=== PATIENT | female | born 1940 | race Caucasian/White ===

== ENCOUNTER 2021-06-09 17:12 | Inpatient (IN) ==
[2021-06-09 17:37] LABS: Hematocrit (blood only) 39.3 % (37-47); Hemoglobin 12.8 g/dL (12.0-16.0); Mean Corpuscular Hemoglobin 29.5 pg (25-34); Mean Corpuscular Hgb Conc 32.6 g/dL (32-36); Mean Corpuscular Volume 90.6 fL (80-100); Mean Platelet Volume 8.9 fL (7.4-10.4); Platelet Count 219 K/uL (130-400); RDW Coefficient of Variation 14.3 % (11.5-14.5); RDW Standard Deviation 47.2 fL (36.4-46.3); Red Blood Count 4.34 M/uL (4.2-5.4); White Blood Count 20.02 K/uL (4.8-10.8)
[2021-06-09 17:53] LABS: INR 1.1 (0.9-1.1); Partial Thromboplastin Time 27.3 Seconds (21.0-31.0); Prothrombin Time 10.9 Seconds (9.0-12.0)
[2021-06-09 17:56] LABS: Alanine Aminotransferase 26 (12-78); Albumin Level 3.6 gm/dl (3.4-5.0); Aspartate Aminotransferase 13 U/L (15-37); BUN Creatinine Ratio 10.3 (10-20); Blood Urea Nitrogen 7 mg/dl (7-18); Calcium 9.5 mg/dl (8.5-10.1); Carbon Dioxide 29 mmol/L (21-32); Chloride 102 mmol/L (98-107); Est GFR (African American) 91.7 ml/min; Est GFR (Non-African American) 79.1 ml/min; Glucose 102 mg/dl (70-99); Magnesium 2.1 mg/dl (1.8-2.4); Potassium 3.8 mmol/L (3.5-5.1); Sodium 135 mmol/L (136-145)
--- NOTE | 2021-06-09 17:56 | CT Scan Report ---
CT SCAN OF THE BRAIN WITHOUT IV CONTRAST CLINICAL HISTORY: Strokelike symptoms. COMPARISON STUDY: No priors. TECHNIQUE: Unenhanced axial CT scan of the brain is performed from the vertex to the skull base. A do se lowering technique was utilized adhering to the principles of ALARA. CT DOSE: 537.48 mGy.cm FINDINGS: Brain parenchyma: There are age-related involutional changes noting moderate subcortical and periven tricular microangiopathic change. There is no hemorrhage, mass effect, or evidence of acute territori al ischemia by CT criteria. A chronic lacunar infarct is noted in the left basal ganglia. Potter-white matter differentiation is preserved. No extra-axial fluid collection is seen. Ventricles, sulci, cisterns: Prominent secondary to involutional change. Intracranial vasculature: There is atherosclerotic calcification of the cavernous carotid arteries. Calvarium: Unremarkable. Sinuses and mastoids: The visualized paranasal sinuses are clear. The mastoid air cells are well pneu matized. Orbits: The bony orbits are grossly intact. There are bilateral ocular lens implants. IMPRESSION: There is no hemorrhage, mass effect, or evidence of acute territorial ischemia by CT enriqueta coburn. ACT 112: Negative or not required by law. Electronically signed by: Ray Dahl M.D. 06/09/2021 5:55 PM
[2021-06-09 17:59] LABS: Albumin Globulin Ratio 0.9 (0.9-2); Alkaline Phosphatase 100 U/L (45-117); Bilirubin,Total 0.6 mg/dl (0.2-1); Total Protein 7.6 gm/dl (6.4-8.2)
--- NOTE | 2021-06-09 21:05 | XRay Report ---
SINGLE VIEW CHEST CLINICAL HISTORY: Strokelike symptoms FINDINGS: An AP, portable, upright chest radiograph is obtained. No prior studies are available for c omparison at the time of dictation. The heart is top normal for projection noting atherosclerotic ca lcification of the thoracic aorta. The pulmonary vasculature is noncongested. Nonspecific interstitia l thickening is likely chronic. There is bibasilar atelectasis. The lungs and pleural spaces are othe rwise clear. No pneumothorax is seen. The skeletal structures are osteopenic. The bony thorax is mary sly intact. IMPRESSION: No active disease in the chest. ACT 112: Negative or not required by law. Electronically signed by: Ray Dahl M.D. 06/09/2021 9:03 PM
[2021-06-09] MEDS ORDERED: SODIUM CHLORIDE 0.9% 1000ML 1,000 ML IV ONE (21:35)
[2021-06-09] MEDS ORDERED: cefTRIAXone SODIUM 2,000 MG/70 ML BAG IV STA (21:36)
--- NOTE | 2021-06-09 21:47 | Emergency Department Note ---
Impression & Plan Altered mental status, Leukocytosis ED Provider Note NAME: MUSA HESS AGE: 81 SEX: F : 1940 ARRIVES VIA: Ambulance INFORMANT: Patient, Daughter ED PROVIDER(S): Cruz Levy DO CHIEF COMPLAINT: Confusion HPI: Patient is an 81-year-old female who presents ER for confusion. She is from out of town. She does take Eliquis for A. fib. Daughter notes she has been staying with her for the past 3 weeks. She is significantly more confused today. She denies any headache or change in vision. No chest pain or shortness of breath. No nausea, vomiting, or diarrhea. She does not think that she has any urinary symptoms but was not sure. She has no upper respiratory symptoms. No other exacerbating or remitting factors. Daughter notes that she was having trouble finding her words and she can no longer ambulate without a walker. ROS: See above HPI for pertinent positives & negatives. A total of 10 systems reviewed and were otherwise negative. PAST MEDICAL HISTORY:See Below PAST SURGICAL HISTORY:See Below FAMILY HISTORY:See Below SOCIAL HISTORY:See Below HOME MEDICATIONS:See Below ALLERGIES:See Below VITALS:See Below PHYSICAL EXAMINATION: GENERAL: Sitting up in bed, alert, well appearing, well nourished, no distress, non-toxic EYE EXAM: normal conjunctiva. PERRL and EOM's intact. OROPHARYNX: no exudate, no erythema, lips, buccal mucosa, and tongue normal and mucous membranes are moist NECK: supple, no nuchal rigidity, no adenopathy, non-tender LUNGS: Clear to auscultation. Normal chest wall mechanics HEART: no murmurs, S1 normal and S2 normal ABDOMEN: abdomen soft, non-tender, normo-active bowel sounds, no masses, no rebound or guarding. UPPER EXTREMITIES: upper extremities are grossly normal. LOWER EXTREMITIES: No pitting edema. NEURO EXAM: Oriented to person and daughter but not place or year, cranial nerves II-XII intact, normal speech, no weakness of arms, no weakness of legs. No drift. Finger to nose intact. Gross sensation intact. MEDICAL DECISION MAKING: Patient is an 81-year-old female who presents ER for confusion brought in by daughter. She has been having increased trouble walking. IV was established blood was obtained. Labs show leukocytosis 20,000. No significant anemia. INR unremarkable. BMP with LFTs bilirubin was unremarkable. Influenza RSV and Covid was negative. Chest x-ray and CT head were negative. Patient was given IV fluids and IV antibiotics. Urine was pending. Patient was updated bedside with daughter. Patient was given IV antibiotics admitted for further work-up pending UA as I favor this likely source. She has no headache or neck pain. No thing to suggest meningitis and she does take a NOAC and consequently cannot tap at this time. Triage Nursing notes reviewed. Limited review of prior medical records performed Vital Signs: reviewed and remarkable for HTN and ami Differential diagnosis: Infection, dehydration, metabolic abnormality, hypo/hyperglycemia, electrolyte disturbance, anemia, hypoxia, cardiac sources, intracerebral event, toxicologic, neurologic, as well as other pathologies. ER treatment provided: See below Diagnostics interpreted by me: ECG: Sinus bradycardia rate of 44 Normal axis No PVCs QTC 465 Cardiac Monitoring: An order was placed for continuous cardiac monitoring. The monitor shows a rate of 50 with sinus rhythm. Laboratory studies: As stated above and show below. Imaging studies: CT head was negative Portable AP upright 1 view chest was unremarkable Consultation(s): Discussed with hospitalist for further evaluation Procedures: none Critical Care: None Past Med/Surg History Social History Smoking Status: Never smoker Preferred Language: Jamaican Feels Safe at Home: Yes Allergies Allergies Allergy/AdvReac Type Severity Reaction Status Date / Time No Known Allergies Allergy Unverified 06/09/21 23:16 Home Meds Home Medications Medication Instructions Recorded Confirmed apixaban 5 mg tablet (Eliquis) 5 mg PO BID 06/09/21 06/09/21 atorvastatin 40 mg tablet 40 mg PO QAM 06/09/21 06/09/21 calcium carbonate 500 mg-vitamin 1 tab PO DAILY 06/09/21 06/09/21 D3 10 mcg (400 unit) tablet (Calcium 500 With D) metoprolol succinate 50 mg 50 mg PO BID 06/09/21 06/09/21 tablet,extended release 24 hr multivitamin 1 tab PO DAILY 06/09/21 06/09/21 omeprazole 20 mg capsule,delayed 20 mg PO BID 06/09/21 06/09/21 release sertraline 25 mg tablet 25 mg PO DAILY 06/09/21 06/09/21 Results & Data (ED) Vital Signs Vital Signs - 24 hr 06/09/21 17:22 06/09/21 21:55 06/09/21 22:00 Temperature 36.2 C L Temperature Source Temporal Artery Scan Pulse Rate 46 L 47 L 42 L Pulse Rate from SpO2 Sensor 44 L 43 L Pulse Rhythm Regular Pulse Strength Normal Respiratory Rate 20 23 15 Respiratory Effort / Characteristics Non-Labored Spontaneous Respiratory Depth Normal Respiratory Pattern Regular Blood Pressure 186/93 H Blood Pressure Mean 124 Blood Pressure Position Sitting Pulse Oximetry 98 97 97 Oxygen Delivery Method Room Air Sepsis Recent Fever Within 48 Hours No Sepsis New/Unexplained Change in Mental Status No Sepsis Action Taken by Nursing No Action Required 06/09/21 22:30 06/09/21 23:00 Temperature Temperature Source Pulse Rate 45 L 47 L Pulse Rate from SpO2 Sensor 44 L Pulse Rhythm Pulse Strength Respiratory Rate 22 18 Respiratory Effort / Characteristics Respiratory Depth Respiratory Pattern Blood Pressure 186/114 H 194/100 H Blood Pressure Mean 138 131 Blood Pressure Position Pulse Oximetry 95 98 Oxygen Delivery Method Room Air Sepsis Recent Fever Within 48 Hours Sepsis New/Unexplained Change in Mental Status Sepsis Action Taken by Nursing Laboratory Data Result diagrams: 06/09/21 17:28 06/09/21 17:28 Lab Results 06/09/21 06/09/21 06/09/21 Range/Units 17:28 17:28 17:28 WBC 20.02 H (4.8-10.8) K/uL RBC 4.34 (4.2-5.4) M/uL Hgb 12.8 (12.0-16.0) g/dL Hct 39.3 (37-47) % MCV 90.6 (80-100) fL MCH 29.5 (25-34) pg MCHC 32.6 (32-36) g/dL RDW Std Deviation 47.2 H (36.4-46.3) fL RDW Coeff of Sonido 14.3 (11.5-14.5) % Plt Count 219 (130-400) K/uL MPV 8.9 (7.4-10.4) fL PT 10.9 (9.0-12.0) Seconds INR 1.1 (0.9-1.1) APTT 27.3 (21.0-31.0) Seconds PTT Ratio 1.0 Sodium 135 L (136-145) mmol/L Potassium 3.8 (3.5-5.1) mmol/L Chloride 102 (98-107) mmol/L Carbon Dioxide 29 (21-32) mmol/L Anion Gap 4.0 (3-11) BUN 7 (7-18) mg/dl Creatinine 0.72 (0.6-1.2) mg/dl Est Cr Clr Drug Dosing Not Reportable Est GFR ( Amer) 91.7 ml/min Est GFR (Non-Af Amer) 79.1 ml/min BUN/Creatinine Ratio 10.3 (10-20) Glucose 102 H (70-99) mg/dl Lactate (0.4-2.0) mmol/L Calcium 9.5 (8.5-10.1) mg/dl Magnesium 2.1 (1.8-2.4) mg/dl Total Bilirubin 0.6 (0.2-1) mg/dl AST 13 L (15-37) U/L ALT 26 (12-78) Alkaline Phosphatase 100 (45-117) U/L Total Protein 7.6 (6.4-8.2) gm/dl Albumin 3.6 (3.4-5.0) gm/dl Globulin 4.0 (2.5-4.0) gm/dl Albumin/Globulin Ratio 0.9 (0.9-2) SARS-CoV-2 (PCR) (Negative) Influenza Type A (PCR) (Neg) Influenza Type B (PCR) (Neg) RSV (RT-PCR) (Neg) 06/09/21 06/09/21 Range/Units 21:43 21:44 WBC (4.8-10.8) K/uL RBC (4.2-5.4) M/uL Hgb (12.0-16.0) g/dL Hct (37-47) % MCV (80-100) fL MCH (25-34) pg MCHC (32-36) g/dL RDW Std Deviation (36.4-46.3) fL RDW Coeff of Sonido (11.5-14.5) % Plt Count (130-400) K/uL MPV (7.4-10.4) fL PT (9.0-12.0) Seconds INR (0.9-1.1) APTT (21.0-31.0) Seconds PTT Ratio Sodium (136-145) mmol/L Potassium (3.5-5.1) mmol/L Chloride (98-107) mmol/L Carbon Dioxide (21-32) mmol/L Anion Gap (3-11) BUN (7-18) mg/dl Creatinine (0.6-1.2) mg/dl Est Cr Clr Drug Dosing Est GFR ( Amer) ml/min Est GFR (Non-Af Amer) ml/min BUN/Creatinine Ratio (10-20) Glucose (70-99) mg/dl Lactate 1.0 (0.4-2.0) mmol/L Calcium (8.5-10.1) mg/dl Magnesium (1.8-2.4) mg/dl Total Bilirubin (0.2-1) mg/dl AST (15-37) U/L ALT (12-78) Alkaline Phosphatase (45-117) U/L Total Protein (6.4-8.2) gm/dl Albumin (3.4-5.0) gm/dl Globulin (2.5-4.0) gm/dl Albumin/Globulin Ratio (0.9-2) SARS-CoV-2 (PCR) NEGATIVE (Negative) Influenza Type A (PCR) Negative (Neg) Influenza Type B (PCR) Negative (Neg) RSV (RT-PCR) Negative (Neg) Administered Medications Discontinued Medications Sodium Chloride (Nss 1000ml) 1,000 mls @ 999 mls/hr IV .Q1H1M ONE Stop: 06/09/21 22:35 Last Infusion: 06/09/21 23:32 Dose: 0 mls/hr Documented by: [id number] Admin: 06/09/21 22:41 Dose: 999 mls/hr Documented by: [id number] Ceftriaxone Sodium (Rocephin) 2,000 mg in 70 mls @ 140 mls/hr IV NOW STA Stop: 06/09/21 22:05 Last Infusion: 06/09/21 23:32 Dose: 0 mls/hr Documented by: [id number] Admin: 06/09/21 22:41 Dose: 140 mls/hr Documented by: [id number] Imaging Data Radiologist's Impression: Head CT 06/09/21 17:29 CT SCAN OF THE BRAIN WITHOUT IV CONTRAST CLINICAL HISTORY: Strokelike symptoms. COMPARISON STUDY: No priors. TECHNIQUE: Unenhanced axial CT scan of the brain is performed from the vertex to the skull base. A dose lowering technique was utilized adhering to the principles of ALARA. CT DOSE: 537.48 mGy.cm FINDINGS: Brain parenchyma: There are age-related involutional changes noting moderate subcortical and periventricular microangiopathic change. There is no hemorrhage, mass effect, or evidence of acute territorial ischemia by CT criteria. A chronic lacunar infarct is noted in the left basal ganglia. Potter-white matter differentiation is preserved. No extra-axial fluid collection is seen. Ventricles, sulci, cisterns: Prominent secondary to involutional change. Intracranial vasculature: There is atherosclerotic calcification of the cavernous carotid arteries. Calvarium: Unremarkable. Sinuses and mastoids: The visualized paranasal sinuses are clear. The mastoid air cells are well pneumatized. Orbits: The bony orbits are grossly intact. There are bilateral ocular lens implants. IMPRESSION: There is no hemorrhage, mass effect, or evidence of acute territorial ischemia by CT criteria. ACT 112: Negative or not required by law. Electronically signed by: Ray Dahl M.D. 06/09/2021 5:55 PM Chest X-Ray 06/09/21 20:16 SINGLE VIEW CHEST CLINICAL HISTORY: Strokelike symptoms FINDINGS: An AP, portable, upright chest radiograph is obtained. No prior studies are available for comparison at the time of dictation. The heart is top normal for projection noting atherosclerotic calcification of the thoracic aorta. The pulmonary vasculature is noncongested. Nonspecific interstitial thickening is likely chronic. There is bibasilar atelectasis. The lungs and pleural spaces are otherwise clear. No pneumothorax is seen. The skeletal structures are osteopenic. The bony thorax is grossly intact. IMPRESSION: No active disease in the chest. ACT 112: Negative or not required by law. Electronically signed by: Ray Dahl M.D. 06/09/2021 9:03 PM Discharge Plan Visit Data Chief Complaint: Confusion Stated Complaint: CONFUSION ED Provider: Cruz Levy Discharge Problem: Altered mental status, Leukocytosis
[2021-06-09 22:35] LABS: Influenza A virus by PCR Negative (Neg); Influenza B virus by PCR Negative (Neg); RSV by PCR Negative (Neg)
--- NOTE | 2021-06-09 23:16 | History & Physical Report ---
Date of Service June 09, 2021 Assessment & Plan (1) Altered mental status: Plan: Mrs. Terrazas is an 81 yo woman who is being admitted for an alteration in her baseline mental status. - etiology uncertain: - Head CT negative for acute process, structural causes unlikely - As for metabolic causes: - WBC elevated to 20. Differential ordered on admission. UA pending. CXR showing no evidence of PNA. Patient is experiencing diarrhea, but no constitutional or upper GI symptoms that would favor a viral gastroenteritis. - TSH ordered - ammonia ordered - no electrolyte derangements - acute UTI presumed to be most likely source - if metabolic work up is totally negative, consider brain MRI for evaluation of ischemic stroke - PT/OT ordered (2) Leukocytosis: Plan: - WBC elevated to 20 on admission - differential ordered - blood cultures pending - UA pending - patient was empirically treated with ceftriaxone in ED. I will await results of UA before continuing antibiotics - COVID/Flu/RSV neg - repeat CBC in am (3) Atrial fibrillation: Plan: - paroxysmal - anticoagulated on Eliquis - rate controlled on Metoprolol - held on admission due to bradycardia (4) Bradycardia: Plan: - HR was in 40s on admission - sinus bradycardia; no AV sarah blockade noted - patient is on Metoprolol succinate 50mg BID; hold on admission - checking TSH - may be due to sinus node dysfunction of the elderly - continue cardiac monitoring (5) HLD (hyperlipidemia): Plan: - continue home dose statin (6) GERD (gastroesophageal reflux disease): Plan: - continue protonix 20mg daily (7) Depression: Plan: - continue home dose sertraline DVT ppx on Eliquis Diet: heart healthy Dispo: Med/tele Code: DNR/DNI, I discussed with patient History of Present Illness Primary Care Provider: NO PCP Mrs. Terrazas is an 81 yo woman who was brought into the [facility] ED for a change in her baseline mental status. Mrs. Terrazas lives in [place], [place] but has been visiting her daughter in [place] for the past 3 weeks. Her daughter says she has mild underlying confusion (ie typically does not know the month or year)- however over the past 1-2 days her mental status has markedly changed. Mrs. Terrazas seemed more disoriented, has had trouble finding her words, and has needed to use a walker to ambulate. She and daughter deny any preceding falls; she denies any fever/chills, headache or vision changes, cough/congestion, nausea/vomiting. She has experienced several episodes of diarrhea - however she has been diagnosed with IBS in the past and intermittently experiences diarrhea. She denies any dysuria, but think she may be urinating more frequently than usual. Social Hx: No eoth or tobacco. In the ED, she was afebrile with a HR of 46 bpm, BP of 186/93, RR 20, 93% on RA. WBC elevated to 20 - no differential was ordered. Coags WNL. CMP normal. Lactate not elevated. COVID/Flu/RSV neg. Blood cultures were obtained. UA was ordered. CXR showed no acute processes. Head CT was negative. She was given 1 liter of NSS and 2g of IV ceftriaxone. Allergies Allergy/AdvReac Type Severity Reaction Status Date / Time No Known Allergies Allergy Unverified 06/09/21 23:16 Home Medications Medication Instructions Recorded Confirmed Type apixaban 5 mg tablet (Eliquis) 5 mg PO BID 06/09/21 06/09/21 History atorvastatin 40 mg tablet 40 mg PO QAM 06/09/21 06/09/21 History calcium carbonate 500 mg-vitamin 1 tab PO DAILY 06/09/21 06/09/21 History D3 10 mcg (400 unit) tablet (Calcium 500 With D) metoprolol succinate 50 mg 50 mg PO BID 06/09/21 06/09/21 History tablet,extended release 24 hr multivitamin 1 tab PO DAILY 06/09/21 06/09/21 History omeprazole 20 mg capsule,delayed 20 mg PO BID 06/09/21 06/09/21 History release sertraline 25 mg tablet 25 mg PO DAILY 06/09/21 06/09/21 History Past Med/Surg History Medical History (Updated 06/10/21 @ 17:35 by Tiffanie Orellana DO) Expressive aphasia Social History Smoking Status: Never smoker Preferred Language: Turkmen Communication Ability: Exp [employer] Consultant Required: No Beliefs That Will Affect Care: None Feels Safe at Home: Yes Review of Systems Review of Systems: All systems reviewed & are unremarkable except as noted in HPI & below Physical Exam Constitutional: WD/WN, vitals as above cooperative; no acute distress Eyes: PERRL, conjunctivae normal, anicteric sclerae ENMT: external ear and nose normal, oropharynx normal Neck: trachea midline Respiratory: normal respiratory effort, lungs clear to auscultation no cough Auscultation: no crackles and no wheezes Cardiovascular: Rate/Rhythm: regular rhythm and + bradycardic Heart Sounds: normal S1 and normal S2; no murmur Extremities: no pedal edema Gastrointestinal (Abdomen): normal bowel sounds, soft, nontender, no hepatosplenomegaly Musculoskeletal: Head/Neck/Chest: normocephalic and head atraumatic Skin: no rashes, warm and dry Neurologic: moves all extremities Psychiatric: Orientation: alert, oriented to person and oriented to place; + not oriented to time (does not know month or year, this is baseline) Results & Data Results & Data ([facility]) Vital Signs (Past 12 Hours) Vital Signs Temp Pulse Resp BP Pulse Ox 06/09/21 22:30 45 L 22 186/114 H 95 06/09/21 22:00 42 L 15 97 06/09/21 21:55 47 L 23 97 06/09/21 17:22 36.2 C L 46 L 20 186/93 H 98 Supervising Physician Co-Signing Physician Notes Patient seen and examined, chart reviewed, case discussed with Dr. Aguayo and I agree with the assessment and plan as above. Patient is an 81yo female presenting with her daughter with complaints of increased confusion, vertigo and ambulatory dysfunction. Patient is visiting her daughter from [place] x 3 weeks. She has been eating well. No new medications. Has had diarrhea on occasion. No focal deficits described. On exam she is afebrile, bradycardic at 40-50's, seen as low as 37bpm on ER monitor while patient resting. No edema or evidence of CHF Abdomen - soft, NT/ND, no masses Ext - warm, well perfused, no clubbing, cyanosis or edema Labs and images reviewed. WBC=20K Assessment/Plan - 81yo female presenting with vertigo, confusion, ambulatory dysfunction. Bradycardic in ER -Hold Metoprolol -Awaiting UA -Consider brain imaging -Cardiology consultation appreciated re: bradycardia -Remainder of plan as above Resident Activity Tracking Resident Involvement: Resident Care Provided Care Provided: Adult Hospital Medicine (1) Leukocytosis Leukocytosis type: unspecified Qualified Code(s): D72.829 - Elevated white blood cell count, unspecified (2) Altered mental status Altered mental status type: unspecified Qualified Code(s): R41.82 - Altered mental status, unspecified
[2021-06-10 01:40] LABS: ALC (manual) 11.53 K/uL (1.2-3.4); ANC (manual) 7.59 K/uL (1.4-6.5); Basophils # (manual) 0.18 K/uL (0-0.2); Basophils % (manual) 0.9 %; Eosinophils # (manual) 0.54 K/uL (0-0.5); Eosinophils % (manual) 2.7 %; Lymphocytes # (manual) 4.14 K/uL (1.2-3.4); Lymphocytes % (manual) 20.7 %; Monocytes # (manual) 0.18 K/uL (0.11-0.59); Monocytes % (manual) 0.9 %; Neutrophils # (manual) 7.59 K/uL (1.4-6.5); Neutrophils % (manual) 37.9 %; RBC Morphology Unremarkable; Reactive Lymphocytes # (manual) 7.39 K/uL; Reactive Lymphocytes % (manual) 36.9 %
[2021-06-10 03:55] LABS: Appearance Urine Clear (Clear); Bilirubin Urine Negative (Negative); Blood Urine Negative (Negative); Color Urine Yellow; Glucose Urine UA Negative (Negative); Ketones Urine Negative (Negative); Leukocyte Esterase Urine Negative (Negative); Nitrite Urine Negative (Negative); Protein Urine Negative (Negative); Specific Gravity Urine 1.004 (1.000-1.030); Urobilinogen Urine Negative (Negative); pH Urine 6.5 (4.5-7.5)
[2021-06-10] MEDS ORDERED: ONDANSETRON INJ 2 MG/ML 2 ML VIAL IV PRN (08:41)
[2021-06-10] MEDS ORDERED: POLYETHYLENE (MIRALAX) 17 GM PACK PO PRN (08:41)
[2021-06-10] MEDS ORDERED: MECLIZINE 12.5 MG TAB PO PRN (08:41)
[2021-06-10] MEDS ORDERED: ACETAMINOPHEN 325 MG TAB PO PRN (08:41)
[2021-06-10] MEDS ORDERED: PANTOprazole 40 MG TAB PO SCH (09:00)
[2021-06-10] MEDS: APIXABAN 2.5 MG TAB PO SCH ×2 (10:03→22:16)
[2021-06-10] MEDS: ATORVASTATIN 40 MG TAB PO SCH (10:05)
[2021-06-10] MEDS: PANTOprazole 40 MG TAB PO SCH (10:05)
[2021-06-10] MEDS: SERTRALINE HCL 50 MG TABLET PO SCH (10:06)
[2021-06-10 10:39] LABS: Hematocrit (blood only) 41.2 % (37-47); Hemoglobin 13.3 g/dL (12.0-16.0); Mean Corpuscular Hemoglobin 29.4 pg (25-34); Mean Corpuscular Hgb Conc 32.3 g/dL (32-36); Mean Corpuscular Volume 91.2 fL (80-100); Platelet Count 227 K/uL (130-400); RDW Coefficient of Variation 14.5 % (11.5-14.5); RDW Standard Deviation 48.3 fL (36.4-46.3); Red Blood Count 4.52 M/uL (4.2-5.4); White Blood Count 17.95 K/uL (4.8-10.8)
[2021-06-10 10:56] LABS: BUN Creatinine Ratio 8.5 (10-20); Blood Urea Nitrogen 7 mg/dl (7-18); Calcium 8.9 mg/dl (8.5-10.1); Carbon Dioxide 26 mmol/L (21-32); Chloride 106 mmol/L (98-107); Est GFR (African American) 85.9 ml/min; Est GFR (Non-African American) 74.1 ml/min; Glucose 122 mg/dl (70-99); Magnesium 1.9 mg/dl (1.8-2.4); Potassium 3.7 mmol/L (3.5-5.1); Sodium 139 mmol/L (136-145)
[2021-06-10 10:59] LABS: Basophils # (auto) 0.04 K/uL (0-0.2); Basophils % (auto) 0.2 %; Eosinophils # (auto) 0.28 K/uL (0-0.5); Eosinophils % (auto) 1.6 %; Immature Granulocytes # (auto) 0.03 K/uL (0.00-0.02); Immature Granulocytes % (auto) 0.2 %; Lymphocytes # (auto) 11.98 K/uL (1.2-3.4); Lymphocytes % (auto) 66.7 %; Monocytes # (auto) 0.62 K/uL (0.11-0.59); Monocytes % (auto) 3.5 %; Neutrophils % (auto) 27.8 %
--- NOTE | 2021-06-10 11:42 | Cardiology Consultation ---
Date of Consultation June 10, 2021 Assessment & Plan (1) Bradycardia: -likely secondary to her metoprolol succinate. -agree with holding beta-sienna. -continue to monitor on telemetry. (2) PAF (paroxysmal atrial fibrillation): -maintained on rate control and long-term anticoagulation. -continue Eliquis. (3) Hypertension: -may need to add another agent such as amlodipine. (4) HLD (hyperlipidemia): -continue atorvastatin. History of Present Illness Attending Physician: Macho Armstrong DO History of Present Illness Mrs. Terrazas is an 81-year-old female admitted yesterday with mental status changes and bradycardia. This consultation was ordered to assist in her cardiac management. Of note, the patient follows with a control panel tester in [place], [place]. She is currently in this area visiting her daughter. The patient was in her usual state of health until 1-2 days prior to presentation. Although she has underlying confusion, the daughter noted her to become much more confused, disoriented, and had to use a walker for ambulation. She was brought to the emergency room for further evaluation. On arrival here, the patient was noted to be in a sinus bradycardia at 40-50 beats per minute. The remainder of her workup was unremarkable. The patient does carry history of paroxysmal atrial fibrillation treated with metoprolol succinate and Eliquis. Her metoprolol succinate was placed on hold at the time of admission. Currently, patient is resting comfortably in bed without complaints. Past medical and surgical history 1. Hypertension 2. Hypercholesterolemia 3. Paroxysmal atrial fibrillation 4. GERD 5. Irritable bowel syndrome 6. Depression 7. Dementia Social history , lives alone Hails from [place], [place] No tobacco alcohol Family history Noncontributory Review of systems A 10 review systems was negative except that described above. Allergies Allergy/AdvReac Type Severity Reaction Status Date / Time No Known Allergies Allergy Unverified 06/09/21 23:16 Home Medications Medication Instructions Recorded Confirmed Type apixaban 5 mg tablet (Eliquis) 5 mg PO BID 06/09/21 06/09/21 History atorvastatin 40 mg tablet 40 mg PO QAM 06/09/21 06/09/21 History calcium carbonate 500 mg-vitamin 1 tab PO DAILY 06/09/21 06/09/21 History D3 10 mcg (400 unit) tablet (Calcium 500 With D) metoprolol succinate 50 mg 50 mg PO BID 06/09/21 06/09/21 History tablet,extended release 24 hr multivitamin 1 tab PO DAILY 06/09/21 06/09/21 History omeprazole 20 mg capsule,delayed 20 mg PO BID 06/09/21 06/09/21 History release sertraline 25 mg tablet 25 mg PO DAILY 06/09/21 06/09/21 History Patient History Social History Smoking Status: Never smoker Preferred Language: Hebrew Feels Safe at Home: Yes Physical Exam Physical Exam: In general is well-developed well-nourished white female no acute distress. HEENT exam is negative. Neck is supple with full carotid upstrokes. There are no carotid bruits. Jugular venous pressure is flat at 90. There is no thyromegaly. Cardiovascular exam reveals a regular with normal S1-S2. Heart sounds are distant. No obvious murmurs. Lungs are clear without rales, rhonchi, or wheezes. Abdomen is soft and nontender without bruits. Extremities reveal intact radial artery pulses bilaterally. There is trace pretibial edema. Results & Data ([facility]) Vital Signs (Past 12 Hours) Vital Signs Pulse Pulse Resp BP BP Pulse Ox 06/10/21 04:00 43 L 18 181/86 H 96 06/10/21 02:30 38 L 16 151/68 H 91 06/10/21 01:30 42 L 17 169/67 H 90 06/10/21 00:30 43 L 16 153/79 H 91 Laboratory Results CBC notes hemoglobin of 12.8, crit 39.3, white count 20.0 and a platelet count of 200197. Electrolytes note a sodium of 135, potassium 3.8, chloride 102, bicarb 29, BUN 7, creatinine 0.72, and glucose of 102. Magnesium level is 2.1. Diagnostic Findings EKG notes sinus bradycardia 44 beats per minute. No other abnormalities. Chest x-ray shows no acute disease. PG Care Time/CCT Total # of Minutes Spent Total Time Spent with Patient: Total time spent is greater than 50% in coordination of care (as documented) at patient's floor/unit and/or counseling patient: Coding Level of Care Code 12771 Office/Outpt Visit, New Diagnoses Bradycardia R00.1 PAF (paroxysmal atrial fibrillation) I48.0 Hypertension I10 HLD (hyperlipidemia) E78.5
--- NOTE | 2021-06-10 12:21 | Electrocardiogram Report ---
Test Reason : Blood Pressure : / mmHG Vent. Rate : 044 BPM Atrial Rate : 044 BPM P-R Int : 150 ms QRS Dur : 084 ms QT Int : 544 ms P-R-T Axes : 064 057 033 degrees QTc Int : 465 ms Marked sinus bradycardia Abnormal ECG No previous ECGs available Confirmed by Juventino Hawley ([id number]) on 06/10/2021 12:21:03 PM Referred By: REFERRED SELF Confirmed By:Juventino Hawley
[2021-06-10] MEDS ORDERED: GADOBUTROL 65ML VIAL IV ONE (15:28)
--- NOTE | 2021-06-10 15:59 | Magnetic Resonance Report ---
MR angio neck wo/w con CLINICAL HISTORY: expressive aphasia COMPARISON STUDY: No previous studies for comparison. TECHNIQUE: Utilizing a 1.5 Carole magnet and dedicated coil, unenhanced and contrast-enhanced MRA of t he neck was performed. Intravenous injection of 6 cc of Gadavist was uneventful. FINDINGS: The bilateral common carotid, cervical internal carotid and vertebral arteries are patent. There are no stenoses within the bilateral common carotid and cervical internal carotid arteries. Mil d stenosis at the origins of the bilateral vertebral arteries are noted. No dissection is identified within the neck by MRI. No aneurysm within the neck is noted. IMPRESSION: 1. No stenosis within the bilateral common carotid or cervical internal carotid arteries. 2. Mild stenoses at the origins of the bilateral vertebral arteries. ACT 112: Negative or not required by law. Electronically signed by: Moiz Haynes M.D. 06/10/2021 3:58 PM
--- NOTE | 2021-06-10 16:07 | Magnetic Resonance Report ---
MRI OF THE BRAIN WITHOUT AND WITH IV CONTRAST CLINICAL HISTORY: expressive aphasia COMPARISON STUDY: Head CT June 09, 2021. TECHNIQUE: Utilizing a 1.5 Carole magnet and dedicated coil, multiplanar, multiecho imaging of the br ain was performed pre and postcontrast administration. IV administration of 6 mL of Gadavist contras t was uneventful. Thin cut T1 post contrast imaging was performed. FINDINGS: There are no foci of restricted diffusion to suggest acute infarct. No acute intracranial h emorrhage, midline shift or mass effect is present. Moderate atrophy is noted. Ventricular system is unremarkable. Basal cisterns are patent. There are no extra axial collections. Flow-voids for the mary or intracranial vessels are present. White matter T2 hyperintense foci suggest small vessel disease. A 3 mm enhancing focus within the anum is noted. There is no associated T2 hyperintensity. No additio nal intracranial lesions are noted. Calvarial signal is normal. Orbits are unremarkable. There is no evidence for sinusitis. Is no mastoid fluid. Note is made of a 1.1 cm T2 hyperintense peripherally en hancing lesion lateral to the right mandibular ramus shown on axial T2-weighted sequence image 3 of 2 2. This likely arises from the superficial lobe of the right parotid gland. IMPRESSION: 1. No acute intracranial findings. 2. Moderate atrophy. 3. White matter T2 hyperintense foci suggestive of small vessel disease. 4. 1.1 cm T2 hyperintense peripherally enhancing lesion lateral to the right mandibular ramus. This f avors an indeterminate right parotid gland lesion. Nonemergent right parotid ultrasound is recommende d for further evaluation. 5. 3 mm enhancing focus within the anum which favors a capillary telangiectasia. ACT 112: Negative or not required by law. Electronically signed by: Moiz Haynes M.D. 06/10/2021 4:06 PM
--- NOTE | 2021-06-10 17:27 | Hospitalist Progress Note ---
Date of Service June 10, 2021 Assessment & Plan (1) Expressive aphasia: Plan: Cindy Terrazas is an 81 yo female w/ PMHx of paroxysmal atrial fibrillation, HLD, GERD, and depression who is being admitted for an alteration in her baseline mental status and expressive aphasia. Expressive Aphasia and Confusion/Altered Mental Status - Head CT 06/09/21 negative for acute process - MRI/MRA 06/10/21 w/o acute findings of ischemia. Moderate atrophy. Small vessel disease. ? right parotid gland lesion (recommend nonemergent right parotid US for further evaluation). Mild stenoses at the origins of the b/l vertebral arteries. - UA unremarkable. Patient did receive dose of ceftriaxone empirically in ED due to leukocytosis but abx therapy discontinued. - TSH wnl -- 2.63 - Ammonia wnl -- 15.9 - No electrolyte derangements - Blood smear, pending - PT/OT ordered, pending Leukocytosis - WBC elevated to 20 on admission; repeat with slight improvement this AM at 17.95 - Blood cultures pending - COVID/Flu/RSV neg - Will continue to monitor with CBC qAM Atrial fibrillation, paroxysmal - Anticoagulated on Eliquis - Rate controlled on Metoprolol -- held on admission due to bradycardia Bradycardia: - HR consistently in 40s-50s since admission - Cardiology consulted: agree that this is likely secondary to her metoprolol s uccinate and agree w/ continuing to hold the beta-sienna - Will continue to monitor on telemetry Chronic Medical Problems Hypertension: home metoprolol held on admission due to bradycardia. Per cardiology, may need to add another agent such as amlodipine. HLD (hyperlipidemia): continue home dose statin GERD (gastroesophageal reflux disease): continue protonix 20mg daily Depression: continue home dose sertraline DVT ppx on Eliquis Diet: heart healthy Dispo: Med/tele Code: DNR/DNI (2) Altered mental status: (3) PAF (paroxysmal atrial fibrillation): (4) Hypertension: (5) Bradycardia: (6) Depression: (7) GERD (gastroesophageal reflux disease): (8) HLD (hyperlipidemia): (9) Leukocytosis: Admission and Anticipated Discharge Date Admission Date: June 09, 2021 Supervising Physician Co-Signing Physician Notes Patient seen and examined with PGY 2 Dr. Orellana. Agree with history, exam findings, assessment and plan of care as outlined. In brief, Ms. Terrazas is an 81-year-old female with history of paroxysmal atrial fibrillation, hyperlipidemia, GERD and depression admitted for expressive aphasia. Reports that she feels better today compared to yesterday but still has concerns with intermittent word finding difficulty. She is getting very frustrated with this. Vital signs and nursing notes reviewed. Well-appearing. Extraocular motion is intact. Heart with a regular rhythm. She is bradycardic down to the 50s. Lungs are clear to auscultation in all lung dumont. No wheezing, rhonchi or rales. She does have intermittent expressive aphasia throughout the interview. Cranial nerves II through XII are grossly intact. She has 5 out of 5 geek squad manager strength, bilateral upper extremities and lower extremities. Negative pronator drift. Labs and imaging reviewed. 1. Expressive aphasia and confusion. Suspect this may be due to a small infarct. CT head was negative for acute process. MRI/MRA today without acute findings of ischemia. There is moderate atrophy and small vessel disease. Mild stenosis at the origin of the bilateral vertebral arteries. Infectious work-up has been negative. TSH and ammonia are within normal limits. 2. Leukocytosis. White blood cell count was elevated to 20 on admission. Repeat this morning was 17.9. She has no infectious symptoms. Blood cultures are pending. Flu and Covid and RSV swabs were negative. Blood smear is also pending. 3. Paroxysmal atrial fibrillation. We have stopped her metoprolol due to bradycardia. Please see details below. Continue anticoagulation with Eliquis. 4. Bradycardia down to the 30s overnight. We have stopped her metoprolol. 5. Hypertension. Holding home metoprolol due to bradycardia. Because her blood pressures have been slightly elevated with no acute infarct seen on MRI and the fact that her aphasia symptoms have been ongoing for the last several days, she is out of the window for permissive hypertension. We have started amlodipine 5 mg. 6. Right parotid gland lesion. This is an incidental finding. Can have a nonemergent right parotid ultrasound for further evaluation as an outpatient. Disposition: Pending clinical improvement, PT and OT evaluations. Subjective Patient seen and evaluated at bedside. States that she is overall feeling better than yesterday. Still with concerns for word-finding difficulty. Patient is understandably frustrated with the word-finding difficulty as she notes that she knows what she wants to say but the words are "on the tip of the tongue" and she can't get them out. She denies difficulty w/ ambulation, decreased appetite, abdominal pain, nausea, vomiting, diarrhea, constipation, CP, SOB, cough, or BALL. She does note some dizziness, described as room spinning, a few days ago but states that this has also resolved. Also discussed w/ daughter early this evening. Daughter notes that patient has h ad decreased appetite over the last few days. She has had an ~5 lb weight loss in the past few weeks but no other significant weight loss. Patient is planning to fly w/ daughter and family to return home to [place] this upcoming Saturday (in 6 days). Daughter notes that patient lives in an assisted living community. Patient has had significant difficulty over the past year after the loss of her as well as "closing down" and isolation in the assisted living community. Review of Systems Review of Systems: See HPI Physical Exam Physical Exam: GENERAL: No acute distress. Well developed and well nourished. Vital signs reviewed as above. EYES: PERRLA. EOMI. Anicteric sclerae. HENT: Moist mucous membranes. No pharyngeal erythema or exudates. No cervical lymphadenopathy. RESPIRATORY: Clear to auscultation bilaterally. No wheezing, rales, or rhonchi. CARDIOVASCULAR: Regular rate and rhythm. ABDOMEN: Soft, non-tender and non-distended. Normal bowel sounds. EXTREMITIES: No edema. Non-tender. SKIN: Warm, dry. NEUROLOGIC: Intermittent expressive aphasia noted thorughout interview and exam. CN II-XII grossly intact. Normal sensation. 5/5 geek squad manager strength, BUE flexion/extension, and BLE flexion/extension. PSYCHIATRIC: Cooperative. Appropriate mood and affect. Results & Data Results & Data ([facility]) Vital Signs (Past 12 Hours) Vital Signs Temp Pulse Resp BP Pulse Ox 06/10/21 12:00 37 C 50 L 18 162/104 H 96 06/10/21 08:00 36.9 C 44 L 18 190/71 H 96 Laboratory Results 06/10/21 06/10/21 06/10/21 Range/Units 10:29 10:26 10:26 WBC 17.95 H (4.8-10.8) K/uL RBC 4.52 (4.2-5.4) M/uL Hgb 13.3 (12.0-16.0) g/dL Hct 41.2 (37-47) % MCV 91.2 (80-100) fL MCH 29.4 (25-34) pg MCHC 32.3 (32-36) g/dL RDW Std Deviation 48.3 H (36.4-46.3) fL RDW Coeff of Sonido 14.5 (11.5-14.5) % Plt Count 227 (130-400) K/uL MPV 9.0 (7.4-10.4) fL Immature Gran % (Auto) 0.2 % Neut % (Auto) 27.8 % Lymph % (Auto) 66.7 % [place] % (Auto) 3.5 % Eos % (Auto) 1.6 % Baso % (Auto) 0.2 % Neut # (Auto) 5.00 (1.4-6.5) K/uL Lymph # (Auto) 11.98 H (1.2-3.4) K/uL [place] # (Auto) 0.62 H (0.11-0.59) K/uL Eos # (Auto) 0.28 (0-0.5) K/uL Baso # (Auto) 0.04 (0-0.2) K/uL Immature Gran # (Auto) 0.03 H (0.00-0.02) K/uL Neutrophils % (Manual) % Lymphocytes % (Manual) % Reactive Lymphs % (Man) % Monocytes % (Manual) % Eosinophils % (Manual) % Basophils % (Manual) % Neutrophils # (Manual) (1.4-6.5) K/uL Total Absolute Neuts (1.4-6.5) K/uL Lymphocytes # (Manual) (1.2-3.4) K/uL Reactive Lymphs # K/uL Total Abs Lymphocytes (1.2-3.4) K/uL Monocytes # (Manual) (0.11-0.59) K/uL Eosinophils # (Manual) (0-0.5) K/uL Basophils # (Manual) (0-0.2) K/uL Blood Smear Review RBC Morphology PT (9.0-12.0) Seconds INR (0.9-1.1) APTT (21.0-31.0) Seconds PTT Ratio Sodium 139 (136-145) mmol/L Potassium 3.7 (3.5-5.1) mmol/L Chloride 106 (98-107) mmol/L Carbon Dioxide 26 (21-32) mmol/L Anion Gap 8.0 (3-11) BUN 7 (7-18) mg/dl Creatinine 0.76 (0.6-1.2) mg/dl Est Cr Clr Drug Dosing Not Reportable Est GFR ( Amer) 85.9 ml/min Est GFR (Non-Af Amer) 74.1 ml/min BUN/Creatinine Ratio 8.5 L (10-20) Glucose 122 H (70-99) mg/dl Lactate (0.4-2.0) mmol/L Calcium 8.9 (8.5-10.1) mg/dl Magnesium 1.9 (1.8-2.4) mg/dl Total Bilirubin (0.2-1) mg/dl AST (15-37) U/L ALT (12-78) Alkaline Phosphatase (45-117) U/L Ammonia 15.9 (11-32) umol/L Total Protein (6.4-8.2) gm/dl Albumin (3.4-5.0) gm/dl Globulin (2.5-4.0) gm/dl Albumin/Globulin Ratio (0.9-2) TSH 2.630 (0.300-4.500) uIu/ml Urine Color Urine Appearance (Clear) Urine pH (4.5-7.5) Ur Specific [place] (1.000-1.030) Urine Protein (Negative) Urine Glucose (UA) (Negative) Urine Ketones (Negative) Urine Blood (Negative) Urine Nitrite (Negative) Urine Bilirubin (Negative) Urine Urobilinogen (Negative) Ur Leukocyte Esterase (Negative) SARS-CoV-2 (PCR) (Negative) Influenza Type A (PCR) (Neg) Influenza Type B (PCR) (Neg) RSV (RT-PCR) (Neg) 06/10/21 06/09/21 06/09/21 Range/Units 03:21 21:44 21:43 WBC (4.8-10.8) K/uL RBC (4.2-5.4) M/uL Hgb (12.0-16.0) g/dL Hct (37-47) % MCV (80-100) fL MCH (25-34) pg MCHC (32-36) g/dL RDW Std Deviation (36.4-46.3) fL RDW Coeff of Sonido (11.5-14.5) % Plt Count (130-400) K/uL MPV (7.4-10.4) fL Immature Gran % (Auto) % Neut % (Auto) % Lymph % (Auto) % [place] % (Auto) % Eos % (Auto) % Baso % (Auto) % Neut # (Auto) (1.4-6.5) K/uL Lymph # (Auto) (1.2-3.4) K/uL [place] # (Auto) (0.11-0.59) K/uL Eos # (Auto) (0-0.5) K/uL Baso # (Auto) (0-0.2) K/uL Immature Gran # (Auto) (0.00-0.02) K/uL Neutrophils % (Manual) % Lymphocytes % (Manual) % Reactive Lymphs % (Man) % Monocytes % (Manual) % Eosinophils % (Manual) % Basophils % (Manual) % Neutrophils # (Manual) (1.4-6.5) K/uL Total Absolute Neuts (1.4-6.5) K/uL Lymphocytes # (Manual) (1.2-3.4) K/uL Reactive Lymphs # K/uL Total Abs Lymphocytes (1.2-3.4) K/uL Monocytes # (Manual) (0.11-0.59) K/uL Eosinophils # (Manual) (0-0.5) K/uL Basophils # (Manual) (0-0.2) K/uL Blood Smear Review RBC Morphology PT (9.0-12.0) Seconds INR (0.9-1.1) APTT (21.0-31.0) Seconds PTT Ratio Sodium (136-145) mmol/L Potassium (3.5-5.1) mmol/L Chloride (98-107) mmol/L Carbon Dioxide (21-32) mmol/L Anion Gap (3-11) BUN (7-18) mg/dl Creatinine (0.6-1.2) mg/dl Est Cr Clr Drug Dosing Est GFR ( Amer) ml/min Est GFR (Non-Af Amer) ml/min BUN/Creatinine Ratio (10-20) Glucose (70-99) mg/dl Lactate 1.0 (0.4-2.0) mmol/L Calcium (8.5-10.1) mg/dl Magnesium (1.8-2.4) mg/dl Total Bilirubin (0.2-1) mg/dl AST (15-37) U/L ALT (12-78) Alkaline Phosphatase (45-117) U/L Ammonia (11-32) umol/L Total Protein (6.4-8.2) gm/dl Albumin (3.4-5.0) gm/dl Globulin (2.5-4.0) gm/dl Albumin/Globulin Ratio (0.9-2) TSH (0.300-4.500) uIu/ml Urine Color Yellow Urine Appearance Clear (Clear) Urine pH 6.5 (4.5-7.5) Ur Specific [place] 1.004 (1.000-1.030) Urine Protein Negative (Negative) Urine Glucose (UA) Negative (Negative) Urine Ketones Negative (Negative) Urine Blood Negative (Negative) Urine Nitrite Negative (Negative) Urine Bilirubin Negative (Negative) Urine Urobilinogen Negative (Negative) Ur Leukocyte Esterase Negative (Negative) SARS-CoV-2 (PCR) NEGATIVE (Negative) Influenza Type A (PCR) Negative (Neg) Influenza Type B (PCR) Negative (Neg) RSV (RT-PCR) Negative (Neg) 06/09/21 06/09/21 06/09/21 Range/Units 17:28 17:28 17:28 WBC 20.02 H (4.8-10.8) K/uL RBC 4.34 (4.2-5.4) M/uL Hgb 12.8 (12.0-16.0) g/dL Hct 39.3 (37-47) % MCV 90.6 (80-100) fL MCH 29.5 (25-34) pg MCHC 32.6 (32-36) g/dL RDW Std Deviation 47.2 H (36.4-46.3) fL RDW Coeff of Sonido 14.3 (11.5-14.5) % Plt Count 219 (130-400) K/uL MPV 8.9 (7.4-10.4) fL Immature Gran % (Auto) % Neut % (Auto) % Lymph % (Auto) % [place] % (Auto) % Eos % (Auto) % Baso % (Auto) % Neut # (Auto) (1.4-6.5) K/uL Lymph # (Auto) (1.2-3.4) K/uL [place] # (Auto) (0.11-0.59) K/uL Eos # (Auto) (0-0.5) K/uL Baso # (Auto) (0-0.2) K/uL Immature Gran # (Auto) (0.00-0.02) K/uL Neutrophils % (Manual) 37.9 % Lymphocytes % (Manual) 20.7 % Reactive Lymphs % (Man) 36.9 % Monocytes % (Manual) 0.9 % Eosinophils % (Manual) 2.7 % Basophils % (Manual) 0.9 % Neutrophils # (Manual) 7.59 H (1.4-6.5) K/uL Total Absolute Neuts 7.59 H (1.4-6.5) K/uL Lymphocytes # (Manual) 4.14 H (1.2-3.4) K/uL Reactive Lymphs # 7.39 K/uL Total Abs Lymphocytes 11.53 H (1.2-3.4) K/uL Monocytes # (Manual) 0.18 (0.11-0.59) K/uL Eosinophils # (Manual) 0.54 H (0-0.5) K/uL Basophils # (Manual) 0.18 (0-0.2) K/uL Blood Smear Review Pending RBC Morphology Unremarkable PT 10.9 (9.0-12.0) Seconds INR 1.1 (0.9-1.1) APTT 27.3 (21.0-31.0) Seconds PTT Ratio 1.0 Sodium 135 L (136-145) mmol/L Potassium 3.8 (3.5-5.1) mmol/L Chloride 102 (98-107) mmol/L Carbon Dioxide 29 (21-32) mmol/L Anion Gap 4.0 (3-11) BUN 7 (7-18) mg/dl Creatinine 0.72 (0.6-1.2) mg/dl Est Cr Clr Drug Dosing Not Reportable Est GFR ( Amer) 91.7 ml/min Est GFR (Non-Af Amer) 79.1 ml/min BUN/Creatinine Ratio 10.3 (10-20) Glucose 102 H (70-99) mg/dl Lactate (0.4-2.0) mmol/L Calcium 9.5 (8.5-10.1) mg/dl Magnesium 2.1 (1.8-2.4) mg/dl Total Bilirubin 0.6 (0.2-1) mg/dl AST 13 L (15-37) U/L ALT 26 (12-78) Alkaline Phosphatase 100 (45-117) U/L Ammonia (11-32) umol/L Total Protein 7.6 (6.4-8.2) gm/dl Albumin 3.6 (3.4-5.0) gm/dl Globulin 4.0 (2.5-4.0) gm/dl Albumin/Globulin Ratio 0.9 (0.9-2) TSH (0.300-4.500) uIu/ml Urine Color Urine Appearance (Clear) Urine pH (4.5-7.5) Ur Specific [place] (1.000-1.030) Urine Protein (Negative) Urine Glucose (UA) (Negative) Urine Ketones (Negative) Urine Blood (Negative) Urine Nitrite (Negative) Urine Bilirubin (Negative) Urine Urobilinogen (Negative) Ur Leukocyte Esterase (Negative) SARS-CoV-2 (PCR) (Negative) Influenza Type A (PCR) (Neg) Influenza Type B (PCR) (Neg) RSV (RT-PCR) (Neg) Diagnostic Findings MRI OF THE BRAIN WITHOUT AND WITH IV CONTRAST CLINICAL HISTORY: expressive aphasia COMPARISON STUDY: Head CT June 09, 2021. TECHNIQUE: Utilizing a 1.5 Caorle magnet and dedicated coil, multiplanar, multi echo imaging of the brain was performed pre and postcontrast administration. IV administration of 6 mL of Gadavist contrast was uneventful. Thin cut T1 post contrast imaging was performed. FINDINGS: There are no foci of restricted diffusion to suggest acute infarct. No acute intracranial hemorrhage, midline shift or mass effect is present. Moderate atrophy is noted. Ventricular system is unremarkable. Basal cisterns are patent. There are no extra axial collections. Flow-voids for the major intracranial vessels are present. White matter T2 hyperintense foci suggest small vessel disease. A 3 mm enhancing focus within the anum is noted. There is no associated T2 hyperintensity. No additional intracranial lesions are noted. Calvarial signal is normal. Orbits are unremarkable. There is no evidence for sinusitis. Is no mastoid fluid. Note is made of a 1.1 cm T2 hyperintense peripherally enhancing lesion lateral to the right mandibular ramus shown on axial T2- weighted sequence image 3 of . This likely arises from the superficial lobe of the right parotid gland. IMPRESSION: 1. No acute intracranial findings. 2. Moderate atrophy. 3. White matter T2 hyperintense foci suggestive of small vessel disease. 4. 1.1 cm T2 hyperintense peripherally enhancing lesion lateral to the right mandibular ramus. This favors an indeterminate right parotid gland lesion. Nonemergent right parotid ultrasound is recommended for further evaluation. 5. 3 mm enhancing focus within the anum which favors a capillary telangiectasia. ACT 112: Negative or not required by law. Electronically signed by: Moiz Haynes M.D. 06/10/2021 4:06 PM Dictated:06/10/21 1558 Transcribed: 06/10/21 1558 ----- MR angio neck wo/w con CLINICAL HISTORY: expressive aphasia COMPARISON STUDY: No previous studies for comparison. TECHNIQUE: Utilizing a 1.5 Carole magnet and dedicated coil, unenhanced and contrast-enhanced MRA of the neck was performed. Intravenous injection of 6 cc of Gadavist was uneventful. FINDINGS: The bilateral common carotid, cervical internal carotid and vertebral arteries are patent. There are no stenoses within the bilateral common carotid and cervical internal carotid arteries. Mild stenosis at the origins of the bilateral vertebral arteries are noted. No dissection is identified within the neck by MRI. No aneurysm within the neck is noted. IMPRESSION: 1. No stenosis within the bilateral common carotid or cervical internal carotid arteries. 2. Mild stenoses at the origins of the bilateral vertebral arteries. ACT 112: Negative or not required by law. Electronically signed by: Moiz Haynes M.D. 06/10/2021 3:58 PM Dictated:06/10/21 1549 Transcribed: 06/10/21 154 Resident Activity Tracking Resident Involvement: Resident Care Provided Care Provided: Adult Hospital Medicine (1) Leukocytosis Leukocytosis type: unspecified Qualified Code(s): D72.829 - Elevated white blood cell count, unspecified (2) Altered mental status Altered mental status type: unspecified Qualified Code(s): R41.82 - Altered mental status, unspecified
[2021-06-10] MEDS ORDERED: amLODIPine BESYLATE 5 MG TAB PO ONE (17:59)
--- NOTE | 2021-06-10 19:46 | Billing Data ---
Date of Service June 09, 2021 Coding Level of Care Code INT OBSERVATION CARE 70M LVL 3
[2021-06-11 06:46] LABS: Hematocrit (blood only) 36.9 % (37-47); Mean Corpuscular Hemoglobin 29.1 pg (25-34); Mean Corpuscular Hgb Conc 32.5 g/dL (32-36); Mean Corpuscular Volume 89.3 fL (80-100); Mean Platelet Volume 9.1 fL (7.4-10.4); Platelet Count 187 K/uL (130-400); RDW Coefficient of Variation 14.3 % (11.5-14.5); RDW Standard Deviation 46.9 fL (36.4-46.3); Red Blood Count 4.13 M/uL (4.2-5.4)
[2021-06-11 07:04] LABS: Basophils # (auto) 0.03 K/uL (0-0.2); Basophils % (auto) 0.2 %; Eosinophils # (auto) 0.23 K/uL (0-0.5); Eosinophils % (auto) 1.4 %; Immature Granulocytes # (auto) 0.01 K/uL (0.00-0.02); Immature Granulocytes % (auto) 0.1 %; Lymphocytes # (auto) 11.81 K/uL (1.2-3.4); Lymphocytes % (auto) 73.4 %; Monocytes # (auto) 0.71 K/uL (0.11-0.59); Monocytes % (auto) 4.4 %; Neutrophils # (auto) 3.31 K/uL (1.4-6.5); Neutrophils % (auto) 20.5 %
[2021-06-11 07:20] LABS: BUN Creatinine Ratio 12.4 (10-20); Blood Urea Nitrogen 9 mg/dl (7-18); Calcium 9.1 mg/dl (8.5-10.1); Carbon Dioxide 29 mmol/L (21-32); Chloride 108 mmol/L (98-107); Est GFR (African American) 95.3 ml/min; Est GFR (Non-African American) 82.2 ml/min; Glucose 92 mg/dl (70-99); Potassium 3.7 mmol/L (3.5-5.1); Sodium 141 mmol/L (136-145)
[2021-06-11] MEDS: SERTRALINE HCL 50 MG TABLET PO SCH (07:29)
[2021-06-11] MEDS: ATORVASTATIN 40 MG TAB PO SCH (07:30)
[2021-06-11] MEDS: PANTOprazole 40 MG TAB PO SCH (07:30)
[2021-06-11] MEDS: APIXABAN 2.5 MG TAB PO SCH ×2 (07:30→21:40)
[2021-06-11] MEDS: amLODIPine BESYLATE 5 MG TAB PO SCH (09:52)
[2021-06-11 10:19] LABS: Folate (Folic Acid) 13.2 ng/ml (>5.38)
--- NOTE | 2021-06-11 11:06 | Ultrasound Report ---
US soft tissue head and neck CLINICAL HISTORY: right parotid gland abnormality on MRI COMPARISON STUDY: MRI of the brain June 10, 2021. TECHNIQUE: Sonography of the right parotid gland was performed. FINDINGS: Note is made of a 1.3 x 0.7 x 1.1 cm hypoechoic lesion likely within the right parotid glan d. This corresponds to the finding on MRI June 10, 2021. No color flow is identified within this l esion however this demonstrated peripheral enhancement on MRI. No additional parotid lesions are pres ent. IMPRESSION: 1.3 x 0.7 x 1.1 cm hypoechoic right parotid gland lesion which corresponds to the lesion on MRI of June 10, 2021. This favors an indeterminate right parotid gland lesion. An intraparotid lymph node could appear similar although is considered less likely. Nonemergent ENT consultation is recommended. ACT 112: Negative or not required by law. Electronically signed by: Moiz Haynes M.D. 06/11/2021 11:05 AM
[2021-06-11 11:31] LABS: Lyme Ab IgG w/WB Rflx Negative (Negative); Lyme Ab IgM w/WB Rflx Negative (Negative)
--- NOTE | 2021-06-11 11:38 | Cardiology Progress Note ---
Date of Service June 11, 2021 Assessment & Plan (1) Bradycardia: Plan: -resolved with discontinuation of metoprolol succinate. -continue to monitor on telemetry. (2) PAF (paroxysmal atrial fibrillation): Plan: -maintained on rate control and long-term anticoagulation. -rate control strategy currently on hold. -continue Eliquis. (3) Hypertension: Plan: -improved on amlodipine. -may need to increase the dose to 10 mg daily. (4) HLD (hyperlipidemia): Plan: -continue atorvastatin. Admission and Anticipated Discharge Date Admission Date: June 09, 2021 Subjective The patient is resting comfortably in the bedside chair without complaints of chest pain dyspnea, syncope, or presyncope. Physical Exam Physical Exam: In general is well-developed well-nourished white female no acute distress. HEENT exam is negative. Neck is supple with full carotid upstrokes. There are no carotid bruits. Jugular venous pressure is flat at 90. There is no thyromegaly. Cardiovascular exam reveals a regular with normal S1-S2. Heart sounds are distant. No obvious murmurs. Lungs are clear without rales, rhonchi, or wheezes. Abdomen is soft and nontender without bruits. Extremities reveal intact radial artery pulses bilaterally. There is trace pretibial edema. 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 PG Care Time/CCT Total # of Minutes Spent Total Time Spent with Patient: Total time spent is greater than 50% in coordination of care (as documented) at patient's floor/unit and/or counseling patient: Coding Level of Care Code 33668 Subseq Hosp Care Lvl 3 Diagnoses Bradycardia R00.1 PAF (paroxysmal atrial fibrillation) I48.0 Hypertension I10 HLD (hyperlipidemia) E78.5
--- NOTE | 2021-06-11 15:07 | Hospitalist Progress Note ---
Date of Service June 11, 2021 Assessment & Plan (1) Expressive aphasia: Plan: Cindy Terrazas is an 81 yo female w/ PMHx of paroxysmal atrial fibrillation, HLD, GERD, and depression who is being admitted for an alteration in her baseline mental status and expressive aphasia. Patient's family also updated at bedside this afternon with regards to the following plan. Expressive Aphasia and Confusion/Altered Mental Status - Head CT 06/09/21 negative for acute process - MRI/MRA 06/10/21 w/o acute findings of ischemia. Moderate atrophy. Small vessel disease. ? right parotid gland lesion (recommend nonemergent right parotid US for further evaluation). Mild stenoses at the origins of the b/l vertebral arteries. - UA unremarkable. Patient did receive dose of ceftriaxone empirically in ED due to leukocytosis but abx therapy discontinued. - TSH wnl -- 2.63 - Ammonia wnl -- 15.9 - Vitamin B12 -- 735 (wnl) - Folate -- 13.20 (wnl) - Lyme disease testing -- negative for IgG or IgM antibodies - No electrolyte derangements - Due to persistent expressive aphasia, will obtain neurology consult. - PT/OT consulted - PT recommending 24 hour assistance and possible short term rehab prior to return to assisted living facility - OT recommending 24 hour care Concern for Lymphoproliferative Disorder - Blood smear ordered as part of work up for the AMS noted above - Findings of: "...absolute lymphocytosis (A.5). The lymphocytes are atypical and generally small with irregular nuclear membranes and clumped chromatin. The findings are worrisome for lymphoproliferative disorder, such as CLL or a different circulating lymphoma/leukemia. Review of the EHR does not reveal a history of a lymphoproliferative disorder." - Flow cytometry recommended on a new fresh blood specimen to be drawn tomorrow morning (06/12) - Hematology consult placed ? Right Parotid Gland Lesion - Initially noted on MRI 06/10 w/ recommendations for nonemergent right parotid US for further evaluation - Head/Neck US obtained 06/11 -- 1.3 x 0.7 x 1.1 cm hypoechoic R parotid gland lesion which corresponds to the lesion on MRI noted above. "This favors an indeterminate R parotid gland lesion. An intraparotid lymph node could appear similar although is considered less likely." - Recommend nonemergent ENT consultation Leukocytosis - WBC elevated to 20 on admission; repeat with slight improvement this AM at 16.1 - Infectious work up has been negative and patient is without infectious symptoms - Blood cultures negative to date - COVID/Flu/RSV neg - Blood smear as noted above - Will continue to monitor with CBC qAM Atrial fibrillation, paroxysmal - Anticoagulated on Eliquis - Rate controlled on Metoprolol -- held on admission due to bradycardia - Cardiology consulted. Appreciate their assistance and recommendations. Hypertension - Home metoprolol held on admission due to bradycardia - Amlodipine 5mg po qAM started 06/11 which has improved BPs - Can consider increasing to 10mg po qAM. Bradycardia, resolved - Has resolved with discontinuation of metoprolol succinate - Will continue to monitor on telemetry Chronic Medical Problems HLD (hyperlipidemia): continue home dose statin GERD (gastroesophageal reflux disease): continue protonix 20mg daily Depression: continue home dose sertraline DVT ppx on Eliquis Diet: heart healthy Dispo: Med/tele; dispo pending clinical improvement Code: DNR/DNI (2) Altered mental status: (3) PAF (paroxysmal atrial fibrillation): (4) Hypertension: (5) Bradycardia: (6) Depression: (7) GERD (gastroesophageal reflux disease): (8) HLD (hyperlipidemia): (9) Leukocytosis: Admission and Anticipated Discharge Date Admission Date: June 11, 2021 Supervising Physician Co-Signing Physician Notes Patient seen and examined with PGY 2 Dr. Orellana. Agree with history, exam findings, assessment and plan of care as outlined. In brief, Ms. Terrazas is an 81-year-old female with history of paroxysmal atrial fibrillation, hyperlipidemia, GERD and depression admitted for expressive aphasia. Reports that she feels better today compared to yesterday but still has concerns with intermittent word finding difficulty. She is getting very frustrated with this. Vital signs and nursing notes reviewed. Well-appearing. She does have intermittent expressive aphasia throughout the interview. Cranial nerves II through XII are grossly intact. She has 5 out of 5 stamp presser strength, bilateral upper extremities and lower extremities. Negative pronator drift. Labs and imaging reviewed. 1. Expressive aphasia and confusion. Suspect this may be due to a small infarct. CT head was negative for acute process. MRI/MRA today without acute findings of ischemia. There is moderate atrophy and small vessel disease. Mild stenosis at the origin of the bilateral vertebral arteries. Infectious work-up has been negative. TSH and ammonia are within normal limits; B12, folate and Lyme done to complete a metabolic/infectious work up all within normal or negative. Appreciate neurology recommendations--unclear if this may be sequelae of below lymphoproliferative process (rare) vs another underlying etiology. 2. Leukocytosis. White blood cell count was elevated to 20 on admission. Repeat this morning was 17.9. She has no infectious symptoms. Blood cultures are pending. Flu and Covid and RSV swabs were negative. Blood smear concerning for lymphoproliferative process. Heme-onc consult requested. Appreciate recommendations. 3. Paroxysmal atrial fibrillation. We have stopped her metoprolol due to bradycardia. Please see details below. Continue anticoagulation with Eliquis. 4. Tachy ami. Self corrects with brief tachy/afib with RVR episodes. Holding metoprolol tonight, but may consider restarting if tachycardia resumes or is persistent. 5. Hypertension. Holding home metoprolol due to bradycardia. Because her blood pressures have been slightly elevated with no acute infarct seen on MRI and the fact that her aphasia symptoms have been ongoing for the last several days, she is out of the window for permissive hypertension. We have started amlodipine 5 mg. 6. Right parotid gland lesion. This is an incidental finding. Ultrasound is indeterminate, but may consider additional work up if relevant to other inpatient issues. Disposition: Pending further clinical work up; may need rehab at discharge, but is from [place], [place]. Subjective Patient seen and evaluated at bedside. She reports feeling "fair" overall. Specifically, patient reports recurrent "shakiness." She is unable to explain what this means and is unable to differentiate if it's more a physical sensation of extremity shaking or an internal off balance sensation. Patient also complains of persistent word finding difficulty, intermittent lightheadedness/dizziness, and decreased appetite. She is able to tolerate po intake w/o abdominal pain, nausea, or vomiting. Patient denies CP, SOB, or BALL. Review of Systems Review of Systems: See HPI Physical Exam Physical Exam: GENERAL: No acute distress. Well developed and well nourished. Vital signs reviewed as above. EYES: PERRLA. EOMI. Anicteric sclerae. HENT: Moist mucous membranes. No pharyngeal erythema or exudates. RESPIRATORY: Clear to auscultation bilaterally. No wheezing, rales, or rhonchi. CARDIOVASCULAR: Regular rate and rhythm. ABDOMEN: Soft, non-tender and non-distended. Normal bowel sounds. EXTREMITIES: No edema. Non-tender. SKIN: Warm, dry. NEUROLOGIC: Intermittent expressive aphasia noted thorughout interview and exam. CN II-XII grossly intact. Normal sensation. 5/5 stamp presser strength, BUE flexion/extension, and BLE flexion/extension. PSYCHIATRIC: Cooperative. Appropriate mood and affect. Results & Data Results & Data ([facility]) Vital Signs (Past 12 Hours) Vital Signs Temp Pulse Pulse Resp BP Pulse Ox 06/11/21 11:51 37.0 C 60 16 132/79 94 06/11/21 07:06 55 L 06/11/21 03:54 36.7 C 49 L 18 152/72 H 93 Laboratory Results 06/11/21 06/11/21 06/11/21 Range/Units 08:49 08:49 06:17 WBC (4.8-10.8) K/uL RBC (4.2-5.4) M/uL Hgb (12.0-16.0) g/dL Hct (37-47) % MCV (80-100) fL MCH (25-34) pg MCHC (32-36) g/dL RDW Std Deviation (36.4-46.3) fL RDW Coeff of Sonido (11.5-14.5) % Plt Count (130-400) K/uL MPV (7.4-10.4) fL Immature Gran % (Auto) % Neut % (Auto) % Lymph % (Auto) % Dale % (Auto) % Eos % (Auto) % Baso % (Auto) % Neut # (Auto) (1.4-6.5) K/uL Lymph # (Auto) (1.2-3.4) K/uL Dale # (Auto) (0.11-0.59) K/uL Eos # (Auto) (0-0.5) K/uL Baso # (Auto) (0-0.2) K/uL Immature Gran # (Auto) (0.00-0.02) K/uL Neutrophils % (Manual) % Lymphocytes % (Manual) % Reactive Lymphs % (Man) % Monocytes % (Manual) % Eosinophils % (Manual) % Basophils % (Manual) % Neutrophils # (Manual) (1.4-6.5) K/uL Total Absolute Neuts (1.4-6.5) K/uL Lymphocytes # (Manual) (1.2-3.4) K/uL Reactive Lymphs # K/uL Total Abs Lymphocytes (1.2-3.4) K/uL Monocytes # (Manual) (0.11-0.59) K/uL Eosinophils # (Manual) (0-0.5) K/uL Basophils # (Manual) (0-0.2) K/uL Blood Smear Review RBC Morphology Sodium 141 (136-145) mmol/L Potassium 3.7 (3.5-5.1) mmol/L Chloride 108 H (98-107) mmol/L Carbon Dioxide 29 (21-32) mmol/L Anion Gap 4.0 (3-11) BUN 9 (7-18) mg/dl Creatinine 0.69 (0.6-1.2) mg/dl Est Cr Clr Drug Dosing Not Reportable Est GFR ( Amer) 95.3 ml/min Est GFR (Non-Af Amer) 82.2 ml/min BUN/Creatinine Ratio 12.4 (10-20) Glucose 92 (70-99) mg/dl Calcium 9.1 (8.5-10.1) mg/dl Vitamin B12 735 (193-986) pg/ml Folate 13.20 (>5.38) ng/ml Lyme Disease IgG Ab Negative (Negative) Lyme Disease IgM Ab Negative (Negative) 06/11/21 06/09/21 Range/Units 06:17 17:28 WBC 16.10 H 20.02 H (4.8-10.8) K/uL RBC 4.13 L 4.34 (4.2-5.4) M/uL Hgb 12.0 12.8 (12.0-16.0) g/dL Hct 36.9 L 39.3 (37-47) % MCV 89.3 90.6 (80-100) fL MCH 29.1 29.5 (25-34) pg MCHC 32.5 32.6 (32-36) g/dL RDW Std Deviation 46.9 H 47.2 H (36.4-46.3) fL RDW Coeff of Sonido 14.3 14.3 (11.5-14.5) % Plt Count 187 219 (130-400) K/uL MPV 9.1 8.9 (7.4-10.4) fL Immature Gran % (Auto) 0.1 % Neut % (Auto) 20.5 % Lymph % (Auto) 73.4 % Dale % (Auto) 4.4 % Eos % (Auto) 1.4 % Baso % (Auto) 0.2 % Neut # (Auto) 3.31 (1.4-6.5) K/uL Lymph # (Auto) 11.81 H (1.2-3.4) K/uL Dale # (Auto) 0.71 H (0.11-0.59) K/uL Eos # (Auto) 0.23 (0-0.5) K/uL Baso # (Auto) 0.03 (0-0.2) K/uL Immature Gran # (Auto) 0.01 (0.00-0.02) K/uL Neutrophils % (Manual) 37.9 % Lymphocytes % (Manual) 20.7 % Reactive Lymphs % (Man) 36.9 % Monocytes % (Manual) 0.9 % Eosinophils % (Manual) 2.7 % Basophils % (Manual) 0.9 % Neutrophils # (Manual) 7.59 H (1.4-6.5) K/uL Total Absolute Neuts 7.59 H (1.4-6.5) K/uL Lymphocytes # (Manual) 4.14 H (1.2-3.4) K/uL Reactive Lymphs # 7.39 K/uL Total Abs Lymphocytes 11.53 H (1.2-3.4) K/uL Monocytes # (Manual) 0.18 (0.11-0.59) K/uL Eosinophils # (Manual) 0.54 H (0-0.5) K/uL Basophils # (Manual) 0.18 (0-0.2) K/uL Blood Smear Review RBC Morphology Unremarkable Sodium (136-145) mmol/L Potassium (3.5-5.1) mmol/L Chloride (98-107) mmol/L Carbon Dioxide (21-32) mmol/L Anion Gap (3-11) BUN (7-18) mg/dl Creatinine (0.6-1.2) mg/dl Est Cr Clr Drug Dosing Est GFR ( Amer) ml/min Est GFR (Non-Af Amer) ml/min BUN/Creatinine Ratio (10-20) Glucose (70-99) mg/dl Calcium (8.5-10.1) mg/dl Vitamin B12 (193-986) pg/ml Folate (>5.38) ng/ml Lyme Disease IgG Ab (Negative) Lyme Disease IgM Ab (Negative) Resident Activity Tracking Resident Involvement: Resident Care Provided Care Provided: Adult Hospital Medicine (1) Leukocytosis Leukocytosis type: unspecified Qualified Code(s): D72.829 - Elevated white blood cell count, unspecified (2) Altered mental status Altered mental status type: unspecified Qualified Code(s): R41.82 - Altered mental status, unspecified
--- NOTE | 2021-06-12 06:33 | Hospitalist Progress Note ---
Date of Service June 12, 2021 Assessment & Plan (1) Expressive aphasia: Plan: Cindy Terrazas is an 81 yo female w/ PMHx of paroxysmal atrial fibrillation, HLD, GERD, and depression who is being admitted for an alteration in her baseline mental status and expressive aphasia. Patient's family also updated at bedside this afternon with regards to the following plan. Expressive Aphasia and Confusion/Altered Mental Status - Presented with worsening confusion and aphasia x 1-2 prior to admission - Work-up as follows: - CBC remarkable for leukocytosis with absolute lymphocytosis - Head CT: negative for acute process - MRI/MRA: Small vessel disease. No infarct. Moderate atrophy. Parotid gland lesion. - UA without pathology - Lytes, TSH, ammonia, B12, Folate, Lyme -- negative - Neurology consulted given ongoing aphasia: appreciate insight and recommendations - PT/OT consulted: Recommending STR and 24-hour assistance Absolute Lymphocytosis -- Concern for Lymphoproliferative Disorder - On admission: Leukocytosis to 20 with absolute lymphocytosis (11.5 K/uL) - Reflexive smear demonstrated "...absolute lymphocytosis (A.5). The lymphocytes are atypical and generally small with irregular nuclear membranes and clumped chromatin. The findings are worrisome for lymphoproliferative disorder, such as CLL or a different circulating lymphoma/leukemia. Review of the EHR does not reveal a history of a lymphoproliferative disorder." - Await flow cytometry (06/12) - Hematology consult placed on 06/11 Right Parotid Gland Lesion - Initially noted on MRI 06/10 - Head/Neck US obtained 06/11 -- 1.3 x 0.7 x 1.1 cm hypoechoic R parotid gland lesion - Recommend ENT consultation as outpatient, appreciate insight on need for biopsy Leukocytosis - WBC elevated to 20 on admission; repeat with slight improvement day-by-day - Infectious work up has been negative and patient is without infectious symptoms - BCX, COVID/Flu/RSV, Lyme -- negative - Suspect secondary to absolute lymphocytosis, as above, alongside stress reaction - Monitor CBC, as above Paroxysmal Atrial Fibrillation -- rate controlled - Anticoagulated on Eliquis - Cardiology previously consulted -- will continue holding metoprolol for now Hypertension - Home metoprolol held on admission due to bradycardia - Amlodipine 5mg po qAM started 06/11 which has improved BPs, increase p.r.n. Sinus Bradycardia -- resolved - Bradycardia appreciated on arrival with HR ~30 bpm. ECG demonstrating the same. No AVB. - Cardiology consulted, as above: resolved with metoprolol succinate discontinuation - Will continue to monitor on telemetry Chronic Medical Problems HLD (hyperlipidemia): continue home dose statin GERD (gastroesophageal reflux disease): continue protonix 20mg daily Depression: continue home dose sertraline DVT ppx on Eliquis Diet: heart healthy Dispo: Med/tele; dispo pending clinical improvement Code: DNR/DNI Of note, patient lives in [place] and was up in [place] visiting daughter. Anticipate majority of outpatient work-up will be performed in home community. (2) Altered mental status: (3) PAF (paroxysmal atrial fibrillation): (4) Hypertension: (5) Bradycardia: (6) Depression: (7) GERD (gastroesophageal reflux disease): (8) HLD (hyperlipidemia): (9) Leukocytosis: Admission and Anticipated Discharge Date Admission Date: June 11, 2021 Results & Data Results & Data ([facility]) Vital Signs (Past 12 Hours) Vital Signs Temp Pulse Pulse Resp BP Pulse Ox 06/11/21 23:23 36.9 C 58 L 16 133/69 96 06/11/21 22:27 64 06/11/21 21:39 131/79 06/11/21 20:00 36.8 C 61 18 131/62 94 Resident Activity Tracking Resident Involvement: Resident Care Provided Care Provided: Adult Hospital Medicine (1) Altered mental status Altered mental status type: unspecified Qualified Code(s): R41.82 - Altered mental status, unspecified (2) Leukocytosis Leukocytosis type: unspecified Qualified Code(s): D72.829 - Elevated white blood cell count, unspecified
--- NOTE | 2021-06-12 07:38 | Hospitalist Progress Note ---
Date of Service June 12, 2021 Assessment & Plan (1) Vascular dementia: (2) PAF (paroxysmal atrial fibrillation): (3) Bradycardia: (4) Depression: (5) GERD (gastroesophageal reflux disease): (6) HLD (hyperlipidemia): (7) Altered mental status: (8) Leukocytosis: (9) Hypertension: Plan: Cindy is an 81 y/o F with PMHx of AFIB, hyperlipidemia and depression admitted for work up of AMS and noted to have a leukocytosis without a clear infectious etiology. #altered mental status - Neuro consult from today supported vascular dementia etiology. No recommendation at this time for acetylcholinesterase inhibitor. Speech therapy and outpatient neuropsych evals were recommended. Pt counseled on benefits of aerobic exercise (30 mins daily) as well as social interaction. Plan is to review this with patient's daughter before discharge. -Acute stroke less likely based on CT which showed chronic basal ganglia infarct. Acute stroke process also made less likely by lack of focal deficits. Continue her outpt regiment of atorvastatin 40mg and apixaban 5mg. -Despite leukocytosis on admission, there was no evidence of infectious etiology of AMS since blood culture and UA were negative. Additionally patient did not have fevers or chills. CXR negative for acute pulmonary disease. #Lymphocytosis (absolute) -Presence of leukocytosis and absence of infectious source raise suspicion for malignant process such as CLL -Pathology: "if absolute lymphocytosis in patient > 50 year old, consider CLL with flow cytometry". Cytometry ordered -Follow up with heme/onc outpatient for further evaluation #AFIB -Following cardio -rebound aflutter with rvr secondary to discontinuing beta sienna; restarted on 25 mg daily QAM -Continue apixaban 5mg #Bradycardia -Following cardio -Bradycardia upon admission (HR in 40s). Today HR up to 67. asymptomatic #GERD -stable #hyperlipidemia -stable, continue atorvastatin #depression -stable, continue sertraline #DVT prophylaxis: apixaban, compression stockings #Fluids, nutrition: PO as tolerated Disposition: can discharge today given stable condition with f/u as recommended above *This note was written by a medical student* Admission and Anticipated Discharge Date Admission Date: June 11, 2021 Ananya White is an 81 y/o F visiting her daughter from [place] with a PMHx of AFIB, GERD, hyperlipidemia and depression. She presented to the ED on 06/09/21 with her daughter 2/2 concern about increased confusion from baseline. She was having trouble finding her words and lost her ability to ambulate without a walker. Her daughter shared that at baseline, she normally isn't oriented to time. Home meds include Eliquis 5mg PO BID, metoprolol 50 mg PO BID, atorvastatin 40mg PO QAM, sertraline 25mg po daily, omeprazole 20 mg PO BID ED course -afebrile with a HR of 46 bpm, BP of 186/93, RR 20, 93% on RA. Metoprolol was held on admission 2/2 sinus bradycardia, no AV sarah blockade noted. Cardio is following her. -COVID/Flu/RSV neg -Labs show leukocytosis 20,000; lymphocytes 4.14 (H), total abs lymphocytes 11.53 (H), neutrophils 7.59 (H) -Patient was given 1 liter of NSS and 2g of IV ceftriaxone -Blood Culture neg. at 48 hours -UA was WNL -Head CT 06/09/21 17:29: Age-related involutional changes noting moderate subcortical and periventricular microangiopathic change. There is no hemorrhage, mass effect, or evidence of acute territorial ischemia by CT criteria. A chronic lacunar infarct is noted in the left basal ganglia atherosclerotic calcification of the cavernous carotid arteries bilateral ocular lens implants. -Chest X-Ray 06/09/21 20:16 No active disease in the chest Atherosclerotic calcification of the thoracic aorta Bibasilar atelectasis Today: Cindy shared she has no acute concerns. She does not recall any recent falls, trauma, or illnesses. Had some intermittent self-limited headaches this week but no HAA at present. No vision changes, facial droop, swallowing difficulties. Reports baseline lower extremity swelling. She remembered feeling "shaky" a couple weeks ago, but it did not localize to any single extremity. Has trouble remembering things/expressing her words which is consistent with her clinical picture thus far. However she was able to form several full sentences with me. Review of Systems Review of Systems: All systems reviewed & are unremarkable except as noted in Subjective Physical Exam Physical Exam: Oriented to person but not time or place. Musculoskeletal: Reported L calf pain with touch. No erythema or warmth. No SCDs present in her hospital bed. Neurologic: normal touch/pain/proprioception, CN's II-XI intact bilaterally, deep tendon reflexes 2+ bilaterally, plantar reflexes intact bilaterally, moves all extremities and awake Cranial Nerves: PERRL, normal accommodation, normal facial strength, tongue midline, able to rotate head bilaterally, able to elevate shoulders bilaterally, no nystagmus and symmetric palate elevation Results & Data Results & Data ([facility]) Vital Signs (Past 12 Hours) Vital Signs Temp Pulse Pulse Resp BP Pulse Ox 06/12/21 07:03 57 L 06/11/21 23:23 36.9 C 58 L 16 133/69 96 06/11/21 22:27 64 06/11/21 21:39 131/79 06/11/21 20:00 36.8 C 61 18 131/62 94 Laboratory Results Follow up labs from 06/11: -Lymphocytes 11.81 (H) -Monocytes 0.71 H (1) Leukocytosis Leukocytosis type: unspecified Qualified Code(s): D72.829 - Elevated white blood cell count, unspecified (2) Altered mental status Altered mental status type: unspecified Qualified Code(s): R41.82 - Altered mental status, unspecified
[2021-06-12] MEDS: SERTRALINE HCL 50 MG TABLET PO SCH (07:50)
[2021-06-12] MEDS: APIXABAN 2.5 MG TAB PO SCH (07:50)
[2021-06-12] MEDS: PANTOprazole 40 MG TAB PO SCH (07:51)
[2021-06-12] MEDS: amLODIPine BESYLATE 5 MG TAB PO SCH (07:51)
[2021-06-12] MEDS: ATORVASTATIN 40 MG TAB PO SCH (07:52)
[2021-06-12 09:08] LABS: Hemoglobin 13.4 g/dL (12.0-16.0); Mean Corpuscular Hemoglobin 29.5 pg (25-34); Mean Corpuscular Hgb Conc 32.7 g/dL (32-36); Mean Corpuscular Volume 90.3 fL (80-100); Mean Platelet Volume 9.1 fL (7.4-10.4); Platelet Count 199 K/uL (130-400); RDW Coefficient of Variation 14.6 % (11.5-14.5); RDW Standard Deviation 48.4 fL (36.4-46.3); Red Blood Count 4.54 M/uL (4.2-5.4); White Blood Count 11.81 K/uL (4.8-10.8)
[2021-06-12 09:30] LABS: Basophils # (auto) 0.02 K/uL (0-0.2); Basophils % (auto) 0.2 %; Eosinophils # (auto) 0.18 K/uL (0-0.5); Eosinophils % (auto) 1.5 %; Immature Granulocytes # (auto) 0.02 K/uL (0.00-0.02); Immature Granulocytes % (auto) 0.2 %; Lymphocytes # (auto) 7.65 K/uL (1.2-3.4); Lymphocytes % (auto) 64.8 %; Monocytes # (auto) 0.39 K/uL (0.11-0.59); Monocytes % (auto) 3.3 %; Neutrophils # (auto) 3.55 K/uL (1.4-6.5)
[2021-06-12 09:39] LABS: BUN Creatinine Ratio 13.7 (10-20); Blood Urea Nitrogen 9 mg/dl (7-18); Calcium 9.1 mg/dl (8.5-10.1); Carbon Dioxide 26 mmol/L (21-32); Chloride 105 mmol/L (98-107); Est GFR (African American) 98.2 ml/min; Est GFR (Non-African American) 84.7 ml/min; Glucose 98 mg/dl (70-99); Potassium 3.4 mmol/L (3.5-5.1); Sodium 141 mmol/L (136-145)
[2021-06-12] MEDS ORDERED: POTASSIUM CHLORIDE CRTAB 20 MEQ TABCR PO STA (10:22)
--- NOTE | 2021-06-12 10:35 | Neurology Consultation ---
Date of Consultation June 12, 2021 Assessment & Plan (1) Vascular dementia: This patient appears to have an element of vascular dementia with associated speech disfluency. Individuals with vascular dementia may experience a stepwise decline in functioning. Would also consider a semantic dementia or primary progressive aphasia/frontotemporal dementia type pattern. A small subacute stroke to the dominant cerebral hemisphere may not be completely excluded although MRI negative in this regard. 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 Would also recommend outpatient neuropsychological evaluation. MRA of the brain without contrast. Would not start a cholinesterase inhibitor or other treatment for dementia acutely. Would like to reassess this patient in the outpatient setting for monitoring of cognitive status going forward. I doubt this patient is having subclinical seizures and would not recommend obtaining an EEG at this point in time. Patient's clinical presentation and MRI results are not suggestive of encephalitis and I would not pursue lumbar puncture at this point in time. History of Present Illness Reason for Consultation: word finding difficulty Requesting Physician: Tiffanie Orellana DO Attending Physician: Cruz Cats DO History of Present Illness The patient is an 81-year old female with a chief complaint of confusion. Patient presented to the emergency department for confusion on June 09. [place] from out of town and has been staying with family for the past 3 weeks. Has been noted to have fairly persistent confusion, mild difficulty with memory as well as speech fluency. Exact onset not entirely clear but felt to be subacute. Did have a leukocytosis upon presentation. History notable for paroxysmal atrial fibrillation on Eliquis. Also has bradycardia, has been evaluated by cardiology, metoprolol has been discontinued. 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 I did review the images as well as the radiologist interpretation of these tests. Patient does have a degree of generalized atrophy, a bit more prominent for the left frontotemporal region. No hydrocephalus. MRA of the neck was negative for significant stenotic lesion. Patient continues to exhibit some difficulty with speech fluency this morning. She also is somewhat disoriented, see examination findings below. Denies headache, focal weakness, or other obvious neurologic signs or symptoms. Allergies Allergy/AdvReac Type Severity Reaction Status Date / Time No Known Allergies Allergy Unverified 06/09/21 23:16 Home Medications Medication Instructions Recorded Confirmed Type apixaban 5 mg tablet (Eliquis) 5 mg PO BID 06/09/21 06/09/21 History atorvastatin 40 mg tablet 40 mg PO QAM 06/09/21 06/09/21 History calcium carbonate 500 mg-vitamin 1 tab PO DAILY 06/09/21 06/09/21 History D3 10 mcg (400 unit) tablet (Calcium 500 With D) metoprolol succinate 50 mg 50 mg PO BID 06/09/21 06/09/21 History tablet,extended release 24 hr multivitamin 1 tab PO DAILY 06/09/21 06/09/21 History omeprazole 20 mg capsule,delayed 20 mg PO BID 06/09/21 06/09/21 History release sertraline 25 mg tablet 25 mg PO DAILY 06/09/21 06/09/21 History Patient History Medical History (Updated 06/12/21 @ 10:50 by Ppie Zhao MD) Expressive aphasia Social History Smoking Status: Never smoker Preferred Language: [place] Communication Ability: Exp Aphas Rug Hooker Required: No Beliefs That Will Affect Care: None Other Information That Helps Us Care for You: No Feels Safe at Home: Yes Safety Concerns: Feels Safe At This Time Assistive Devices: CPAP and Walker Review of Systems Constitutional: no fever and no chills Eyes: no blind spots and no diplopia Ear, Nose, Mouth, Throat: no ear pain and no hearing loss Respiratory: no cough and no dyspnea Cardiovascular: no chest pain and no palpitations Gastrointestinal: no constipation and no diarrhea/loose stools Genitourinary: no urinary urgency and no urinary incontinence Musculoskeletal: no muscle weakness and no muscle atrophy Integumentary: no rash and no lesions Neurologic: as per Subjective / HPI, + tremor(s), + abnormal speech and + confusion; no localized weakness Psychiatric: no behavioral changes, no depression, no abnormal sleep pattern and no anxiety Hematologic / Lymphatic: no easy bruising and no lymphadenopathy Exam (Neuro) Constitutional: well developed and well nourished; no acute distress Eyes: normal visual dumont by confrontation, PERRL, normal accommodation and EOM intact bilaterally; no fundoscopic abnormality, no nystagmus and no papilledema Cardiovascular: Vessels: normal carotid upstroke; no carotid bruit Neurologic: Oriented to:: Person; negative Place or Time Memory: Remote Intact; negative Short Term Intact Attention: Span Intact; negative Concentration Intact Language: Repeating Phrases; negative Naming Objects Speech Fluency: Dysfluency; negative Dysarthria Speech Aphasia: Aphasia Fund of Knowledge: Vocabulary; negative Current Events or Past History Cranial Nerves: Normal II (Visual dumont full to confrontation, visual acuity normal), III, IV, (Pupils equal round reactive to light and accommodation, eye movements normal), V (Facial sensation intact), VII (There is no facial droop or weakness), VIII (Hearing intact), IX, X (Palate elevates to midline), XI (Shoulder shrug intact) and XII (Tongue protrudes to midline) Motor Strength: Normal Lower Extremities and Normal Upper Extremities; negative Pronator Drift Motor Tone: Normal Lower Extremities and Normal Upper Extremities Muscle Bulk/Involuntary Movements: Action Tremor (R>L); negative Muscle Atrophy Sensation: Light Touch Intact, Pain/Temperature Intact, Vibration Intact and Proprioception Intact Coordination: Normal; negative Limited Balance, Dysdiadochokinesia, Finger-Nose Abnormal or Heel-Clifford Abnormal Deep Tendon Reflexes: Rt Triceps: 2+, Lt Triceps: 2+, Rt Biceps: 2+, Lt Biceps: 2+, Rt Brachioradialis: 2+, Lt Brachioradialis: 2+, Rt Patellar: 2+, Lt Patellar: 2+, Rt Ankle: 2+ and Lt Ankle: 2+ Special Tests: negative Babinski Present Details: Cognitive testing revealed some difficulty with concentration, memory, word finding, speech fluency, also had some left right confusion, difficulty with finger naming, and an element of acalculia. Patient was able to read and write simple statements. Gait not tested in the context of patient's current neurological status. Results & Data ([facility]) Vital Signs (Past 12 Hours) Vital Signs Temp Pulse Pulse Resp BP Pulse Ox 06/12/21 07:36 36.7 C 64 18 143/76 H 92 06/12/21 07:03 57 L 06/11/21 23:23 36.9 C 58 L 16 133/69 96 Laboratory Results WBC 11.81, hemoglobin 13.4, hematocrit 41.0, platelet count 199, sodium 141, potassium 3.4, BUN 9, creatinine 0.63, glucose 98, calcium 9.1, magnesium 1.9, ammonia 15.9, vitamin B12 735, TSH 2.630, urinalysis negative, screening for Lyme disease negative, screening for SARS-CoV-2 and influenza negative Diagnostic Findings CT of the head, MRI of the brain, and MRA of the neck are as described in the history of present illness. I reviewed the images as well as the radiologist's interpretation of these tests. An electrocardiogram revealed marked sinus bradycardia, 44 bpm. Coding Level of Care Code 61897 Initial Inpt Care Lvl 3 Diagnoses Vascular dementia F01.50
[2021-06-12] MEDS ORDERED: METOPROLOL SUCC 25MG EXT REL TAB PO ONE ×2 (12:08→12:15)
--- NOTE | 2021-06-12 13:04 | Cardiology Progress Note ---
Date of Service June 12, 2021 Assessment & Plan (1) Bradycardia: Plan: -resolved with discontinuation of metoprolol succinate. -unfortunately, she had a bout of atrial flutter with a rapid ventricular response. (2) PAF (paroxysmal atrial fibrillation): Plan: -she had an episode of atrial flutter with 2-1 conduction. -would restart low-dose metoprolol succinate (25-50 mg daily). -continue apixaban. (3) Hypertension: Plan: -adequate control on current regimen. (4) HLD (hyperlipidemia): Plan: -continue atorvastatin. Admission and Anticipated Discharge Date Admission Date: June 11, 2021 Subjective The patient is resting comfortably in bed without complaints of chest pain, dyspnea, palpitations, or syncope. Physical Exam Physical Exam: In general is well-developed well-nourished white female no acute distress. HEENT exam is negative. Neck is supple with full carotid upstrokes. There are no carotid bruits. Jugular venous pressure is flat at 90. There is no thyromegaly. Cardiovascular exam reveals a regular with normal S1-S2. Heart sounds are distant. No obvious murmurs. Lungs are clear without rales, rhonchi, or wheezes. Abdomen is soft and nontender without bruits. Extremities reveal intact radial artery pulses bilaterally. There is trace pretibial edema. Results & Data ([facility]) Vital Signs (Past 12 Hours) Vital Signs Temp Pulse Pulse Resp BP Pulse Ox 06/12/21 11:03 36.6 C 67 20 132/80 96 06/12/21 07:36 36.7 C 64 18 143/76 H 92 06/12/21 07:03 57 L Diagnostic Findings monitoring engineer noted an episode of atrial flutter with 2-1 conduction. PG Care Time/CCT Total # of Minutes Spent Total Time Spent with Patient: Total time spent is greater than 50% in coordination of care (as documented) at patient's floor/unit and/or counseling patient: Coding Level of Care Code 05805 Subseq Hosp Care Lvl 3 Diagnoses Bradycardia R00.1 PAF (paroxysmal atrial fibrillation) I48.0 Hypertension I10 HLD (hyperlipidemia) E78.5
--- NOTE | 2021-06-12 13:44 | Magnetic Resonance Report ---
MR angio head wo con HISTORY: 81 years-old Female stroke like symptoms, cerebrovascular disease acutely altered mental st atus with dizziness COMPARISON: Brain MRI 06/10/2021 TECHNIQUE: MRA of the head was obtained without the use of IV contrast. 3-D coronal and sagittal MIPS were obtained from the axial data set and were submitted for review. All measurements were obtained according to NASCET criteria. FINDINGS: Age-related involutional changes. Motion degraded exam. The right parotid gland lesion on image 2 7 s eries 3 is better characterized on the comparison brain MRI. The imaged bilateral internal carotid arteries are widely patent. The visualized portions of the ante rior and middle cerebral arteries appear to be patent. The vertebral arteries, basilar and posterior cerebral arteries appear patent. No aneurysm, dissection, high-grade stenosis or arterial occlusion i dentified. IMPRESSION: Unremarkable mildly motion degraded MRA of the head. ACT 112: Negative or not required by law. The above report was generated using voice recognition software. It may contain grammatical, syntax o r spelling errors. Electronically signed by: Mark Yao M.D. 06/12/2021 1:43 PM
--- NOTE | 2021-06-12 15:16 | Discharge Summary ---
Date of Service June 12, 2021 Admission HPI Per Admitting Provider Mrs. Terrazas is an 81 yo woman who was brought into the [facility] ED for a change in her baseline mental status. Mrs. Terrazas lives in [place], [place] but has been visiting her daughter in [place] for the past 3 weeks. Her daughter says she has mild underlying confusion (ie typically does not know the month or year)- however over the past 1-2 days her mental status has markedly changed. Mrs. Terrazas seemed more disoriented, has had trouble finding her words, and has needed to use a walker to ambulate. She and daughter deny any preceding falls; she denies any fever/chills, headache or vision changes, cough/congestion, nausea/vomiting. She has experienced several episodes of diarrhea - however she has been diagnosed with IBS in the past and intermittently experiences diarrhea. She denies any dysuria, but think she may be urinating more frequently than usual. Social Hx: No eoth or tobacco. In the ED, she was afebrile with a HR of 46 bpm, BP of 186/93, RR 20, 93% on RA. WBC elevated to 20 - no differential was ordered. Coags WNL. CMP normal. Lactate not elevated. COVID/Flu/RSV neg. Blood cultures were obtained. UA was ordered. CXR showed no acute processes. Head CT was negative. She was given 1 liter of NSS and 2g of IV ceftriaxone. Admission Exam Per Admitting Provider Constitutional: WD/WN, vitals as above cooperative; no acute distress Eyes: PERRL, conjunctivae normal, anicteric sclerae ENMT: external ear and nose normal, oropharynx normal Neck: trachea midline Respiratory: normal respiratory effort, lungs clear to auscultation no cough Auscultation: no crackles and no wheezes Cardiovascular: Rate/Rhythm: regular rhythm and + bradycardic Heart Sounds: normal S1 and normal S2; no murmur Extremities: no pedal edema Gastrointestinal (Abdomen): normal bowel sounds, soft, nontender, no hepatosplenomegaly Musculoskeletal: Head/Neck/Chest: normocephalic and head atraumatic Skin: no rashes, warm and dry Neurologic: moves all extremities Psychiatric: Orientation: alert, oriented to person and orie Principal Diagnosis suspected vascular dementia altered mental status lymphocytosis, concern for lymphoproliferative disorder Discharge Exam General: Well appearing 81yoF oriented to person, not place or time. Pleasant. Intermittent word-finding difficulties. NAD. HEENT: MMM. No JVD. Cardiac: NRRR, S1/S2 present without m/r/g Pulmonary: CTAB w/o crackles or wheezes Abdominal: Soft, nontender, nondistended. Extremities: 1+ pitting edema b/l. Discharge Data Allergies Allergy/AdvReac Type Severity Reaction Status Date / Time No Known Allergies Allergy Unverified 06/09/21 23:16 Consultations 06/09/21 21:54 ED Decision to Admit Stat 06/10/21 08:41 Consult Cardiology Routine -- excerpted from Juventino Hawley MD "1) Bradycardia: Plan: -resolved with discontinuation of metoprolol succinate. -unfortunately, she had a bout of atrial flutter with a rapid ventricular response. (2) PAF (paroxysmal atrial fibrillation): Plan: -she had an episode of atrial flutter with 2-1 conduction. -would restart low-dose metoprolol succinate (25-50 mg daily). -continue apixaban. (3) Hypertension: Plan: -adequate control on current regimen. (4) HLD (hyperlipidemia): Plan: -continue atorvastatin." 06/11/21 12:50 Consult Hematology Routine 06/11/21 12:52 Consult Neurology Routine -- excerpted from Pipe Zhao MD "This patient appears to have an element of vascular dementia with associated speech disfluency. Individuals with vascular dementia may experience a stepwise decline in functioning. Would also consider a semantic dementia or primary progressive aphasia/frontotemporal dementia type pattern. A small subacute stroke to the dominant cerebral hemisphere may not be completely excluded although MRI negative in this regard. 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 Would also recommend outpatient neuropsychological evaluation. MRA of the brain without contrast. Would not start a cholinesterase inhibitor or other treatment for dementia acutely. Would like to reassess this patient in the outpatient setting for monitoring of cognitive status going forward. I doubt this patient is having subclinical seizures and would not recommend obtaining an EEG at this point in time. Patient's clinical presentation and MRI results are not suggestive of encephalitis and I would not pursue lumbar puncture at this point in time." Ordered Studies 06/09/21 17:29 CT head/brain wo con Stat IMPRESSION: There is no hemorrhage, mass effect, or evidence of acute territorial ischemia by CT criteria. 06/10/21 14:07 MR angio neck wo/w con Stat MR brain wo/w con Stat IMPRESSION: 1. No stenosis within the bilateral common carotid or cervical internal carotid arteries. 2. Mild stenoses at the origins of the bilateral vertebral arteries. 06/11/21 08:34 US soft tissue head and neck Routine IMPRESSION: 1.3 x 0.7 x 1.1 cm hypoechoic right parotid gland lesion which corresponds to the lesion on MRI of June 10, 2021. This favors an indeterminate right parotid gland lesion. An intraparotid lymph node could appear similar although is considered less likely. Nonemergent ENT consultation is recommended. 06/12/21 11:06 MR angio head wo con Routine FINDINGS: Age-related involutional changes. Motion degraded exam. The right parotid gland lesion on image 2 7 series 3 is better characterized on the comparison brain MRI. The imaged bilateral internal carotid arteries are widely patent. The visualized portions of the anterior and middle cerebral arteries appear to be patent. The vertebral arteries, basilar and posterior cerebral arteries appear patent. No aneurysm, dissection, high-grade stenosis or arterial occlusion identified. IMPRESSION: Unremarkable mildly motion degraded MRA of the head. Hospital Course (1) Expressive aphasia: Cindy Terrazas is an 81 yo female w/ PMHx of paroxysmal atrial fibrillation, HLD, GERD, and depression who is being admitted for an alteration in her baseline mental status and concern for expressive aphasia vs. word- finding difficulties. Suspected Vascular Dementia -- Altered mental status, word-finding difficulties, and bouts of expressive aphasia - Presented with worsening confusion and word-finding difficulties vs. aphasia x 1-2 days prior to admission atop known cognitive deficits - Work-up as follows: - CBC remarkable for leukocytosis with absolute lymphocytosis - Head CT: negative for acute process - MRI/MRA: Small vessel disease. No infarct. Moderate atrophy. Parotid gland lesion. - UA without pathology - Lytes, TSH, ammonia, B12, Folate, Lyme -- negative - Neurology consulted given ongoing aphasia: Likely vascular dementia with speech disfluency. Possibly semantic dementia or primary progressive aphasia/frontotemporal dementia. Small subacute CVA cannot be excluded. Gerstmann syndrome considered. --> Recommend arranging neuropsychologic and speech therapy evaluations upon discharge from hospital --> Hold from starting cholinesterase inhibitor in acute setting. Re-evaluate as outpatient. - PT/OT consulted: STR can be considered upon return home for balance/mobility training Absolute Lymphocytosis -- Concern for Lymphoproliferative Disorder - On admission: Leukocytosis to 20 with absolute lymphocytosis (11.5 K/uL) - Reflexive smear demonstrated "...absolute lymphocytosis (A.5). The lymphocytes are atypical and generally small with irregular nuclear membranes and clumped chromatin. The findings are worrisome for lymphoproliferative disorder, such as CLL or a different circulating lymphoma/leukemia. Review of the EHR does not reveal a history of a lymphoproliferative disorder." - Flow cytometry performed 06/12 -- follow-up results after discharge - CBCd concerning for lymphoproliferative disease, including CLL. Patient will require close hematology/oncology arrangement and consultation at discharge. Believe this was discovered incidentally in the hospital, and less likely to be related to acute process. - CBCd within 1 week as outpatient Leukocytosis - WBC elevated to 20 on admission; repeat with slight improvement day-by-day - Infectious work up has been negative and patient is without infectious symptoms - BCX, COVID/Flu/RSV, Lyme -- negative - Suspect secondary to absolute lymphocytosis, as above, alongside stress reaction - CBCd within 1 week as outpatient Right Parotid Gland Lesion - Initially noted on MRI 06/10 - Head/Neck US obtained 06/11 -- 1.3 x 0.7 x 1.1 cm hypoechoic R parotid gland lesion - Recommend non-emergent ENT consultation as outpatient, appreciate insight on biopsy Sinus Bradycardia -- resolved - Bradycardia appreciated on arrival with HR ~30 bpm. ECG demonstrating the same. No AVB. - Cardiology consulted, as above: resolved with metoprolol succinate discontinuation Paroxysmal Atrial Fibrillation -- rate controlled for majority of stay, one e pisode of RVR on 06/12 - Anticoagulated on Eliquis - Cardiology consulted, as above: however, did have short run of atrial flutter with RVR on 06/12. Resume low-dose metoprolol succinate (25-50mg daily, total) Hypertension - Amlodipine 5mg po qAM started 06/11 which improved BPs during stay --> consider weening / discontinuing in outpatient setting - Metoprolol, as above Chronic Medical Problems HLD (hyperlipidemia): continue home dose statin GERD (gastroesophageal reflux disease): continue protonix 20mg daily Depression: continue home dose sertraline Code: DNR/DNI (2) Altered mental status: (3) PAF (paroxysmal atrial fibrillation): (4) Hypertension: (5) Bradycardia: (6) Depression: (7) GERD (gastroesophageal reflux disease): (8) HLD (hyperlipidemia): (9) Leukocytosis: Total Time Total Time Spent Total Time Spent (In Minutes): >30 Discharge Plan Discharge Items Patient Disposition: Home - Self-Care Reason For Visit: CONFUSION Discharge Diagnosis: vascular dementia altered mental status lymphocytosis, concern for lymphoproliferative disorder Condition on Discharge: Fair Activity: Per Instructions section Non-emergency contact: Primary Care Provider Call non-emergency contact if: you have any medication questions, your symptoms worsen, your pain is unusual for you and your temperature is above 101 Follow-up/Referrals: PCP,NO [Primary Care Provider] - Diet: Heart Healthy Addtl Attending Provider Instructions: You were seen at [facility] in [place], [place], for evaluation of confusion. During your stay here, you underwent multiple tests (blood, urine)and imaging modalities (CT, MRI) to determine the cause of your symptoms. These tests did not reveal evidence of an infection. There was no evidence of a new stroke on any of your imaging -- though they did show signs of aging within the blood vessels and brain tissue. There were no electrolyte or blood count abnormalities to likely explain your symptoms, either. It is unlikely any of your previous medications contributed, either. Of note, when individuals increase in age, the "wiring" within the brain tissue (physical connection between neurons - the cells within the brain) becomes more fragile. Clinically, this often manifests as memory impairment, word-finding difficulties, and intermittent periods of confusion. When coupled with age- related changes within the blood vessels that fuels this tissue, these manifestations can be more step-monroy and pronounced. The medical term that describes these processes are called "vascular dementia." You were seen by our neurology team; together, we believe that it is very plausible that your presenting confusion represents a manifestation of this vascular dementia. While the age-related changes are not reversible, there are many things individuals can do to prevent decline and promote wellbeing. Maximizing social interaction -- between family, friends, peers -- is essential. Likewise, partaking in problem-solving games/activities (e.g., cross words) can help, as can frequent, regular exercise and consumption of leafy greens. You will also want to talk with your primary care physician about certain medications that can be used to prevent further cognitive decline, too (these cannot be started during an 'flare'). We recommend continuing to work with PT and OT, as well as speech therapy, upon your arrival back home. In the interim, please use your walker to ensure safe ambulation and avoiding use of stairs. One of the other things you were evaluated for while here were your blood counts. Your white blood cell counts were notably high, especially a particular cell line (lymphocytes). Our pathologist reviewed your blood cells under the microscope, who did find features concerning for issues (diseases/disorders) with production within the bone marrow. Please talk with your primary care provider about arranging a follow-up with a customs compliance director/oncologist specialist to review these results. There is one test (flow cytometry) that will be pending at discharge. If you sign up for the [employer] portal, you will have access to these anytime/anywhere. Please note the following changes/additions to your medication list: -- CHANGE MADE: take metoprolol succinate 25mg, once daily, until otherwise directed by your PCP (dose decreased due to low heart rate) -- BEGIN: amlodipine 5mg, once daily, until otherwise directed by your PCP (new medication started for blood pressure, since metoprolol was reduced because of low heart rate) Please follow-up with your primary care provider within 1-2 weeks to review this visit. At that visit, please discuss your need for a customs compliance director/oncologist doctor. Please also talk with them about a follow-up ultrasound of your parotid (cheek) gland findings and need for ENT consultation. In the interim, if you experience any sudden-onset weakness, numbness/tingling, chest pain, palpitations, shortness of breath, fever, loss of appetite, or other concerning symptoms, please seek medical attention immediately -- if your symptoms are severe, please report to the ER immediately for evaluation. It was a pleasure for caring for you while you were here, and we wish you all the best in your recovery. Pending Studies at Discharge: Yes Studies:: flow cytometry Stand-Alone Forms: My [facility], Smoking Cessation Medications and DC Order Prescriptions: New metoprolol succinate 25 mg tablet extended release 24 hr 25 mg PO DAILY 30 Days Qty: 30 RF: 0 amlodipine [Norvasc] 5 mg Tablet 5 mg PO QAM 30 Days Qty: 30 RF: 0 Continued multivitamin Tablet 1 tab PO DAILY RF: 0 atorvastatin 40 mg tablet 40 mg PO QAM RF: 0 sertraline 25 mg tablet 25 mg PO DAILY RF: 0 omeprazole 20 mg capsule,delayed release(DR/EC) 20 mg PO BID RF: 0 calcium carbonate-vitamin D3 [Calcium 500 With D] 500 mg-10 mcg (400 unit) Tablet 1 tab PO DAILY RF: 0 Eliquis 5 mg tablet 5 mg PO BID RF: 0 Discontinued metoprolol succinate 50 mg tablet extended release 24 hr 50 mg PO BID RF: 0 Discharge Orders: Discharge Order (Routine); Ordered 06/12/21 Ordered By: Cruz Ding/Other Patient Handouts: Dementia Patients Safety Tips, Understanding Dementia, Dementia: Coping Tips for Caregivers Admission Data Admit Date/Time: 06/11/21 12:53 Attending Provider: Cruz Cast Admit Provider: Rita Basurto Primary Care Provider: PCP,NO Other Interventions: Discharge Summary Assessment (RN) Last Done: 06/12/21 17:47 Supervising Physician Co-Signing Physician Notes I personally examined the patient and verified all alvarez points of history and exam, discussed case, and agree with decision making with Dr Hay. Feeling about the same. Agree with neurology that vascular dementia appears to be the most likely diagnosis. Discussed this with patient extensively, offering empathy, support, guidance to the best of my ability. Later whenever the daughter was present Dr. Hay first, then myself, free discussed the situation with her as well. Patient would very much like to go home. Vitals noted, in general she is awake and alert pleasant no distress. HEENT normocephalic atraumatic mucous membranes moist. Breathing unlabored no accessory muscle use good effort. Skin shows no rashes no pallor or icterus. Neuro without lateralizing/focal deficits, she does have a little bit of difficulty getting the right words out sometimes. She is slow but steady with her gait with a walker. Difficulty with word finding/vascular dementiadiscussed diagnosis at length. Answered all questions the best my ability. Close outpatient follow-up. Weaknesswhile a rehab facility was considered, patient has good support with her family at her daughter's house, and all felt comfortable with her going home "as is" with outpatient therapy, after we all watched her walk/walked together. Stable from, otherwise as above Resident Activity Tracking Resident Involvement: Resident Care Provided Care Provided: Adult [facility] Medicine
[2021-06-12 15:18] VITALS: BP 122/80; PULSE 69; TEMP 98.6; O2SAT 94
[2021-06-12 18:10] LABS: SARS CoV2 RNA(COVID-19) InHosp NEGATIVE (Negative)
--- NOTE | 2021-06-12 19:14 | Billing Data ---
Date of Service June 12, 2021 Coding Level of Care Code D/C DAY MANAGEMENT >30 MINS
--- NOTE | 2021-06-12 19:14 | Billing Data ---
Date of Service June 12, 2021 Coding Level of Care Code D/C DAY MANAGEMENT >30 MINS
[2021-06-12] MEDS ORDERED: METOPROLOL SUCC 25MG EXT REL TAB PO SCH (21:00)
--- NOTE | 2021-06-12 22:10 | Consultation Report ---
HEMATOLOGY CONSULTATION DATE OF SERVICE: 06/12/2021 REASON FOR CONSULTATION: Concern for new lymphoproliferative disorder. HISTORY OF PRESENT ILLNESS: Ms. Terrazas is an 81-year-old female who was admitted for altered mental status. Labs obtained on admission had revealed leukocytosis with white count of 20,000, which was predominantly lymphocytic. Peripheral smear review revealed atypical lymphocytes concerning for lymphoproliferative disorder such as CLL. Flow cytometry was obtained, but is pending. Since admission, she has had brain imaging studies including CT head, which was essentially unremarkable. Brain MRI performed on 06/10/2021 revealed no acute intracranial findings, moderate atrophy, white matter T2 hyperintense foci suggestive of small vessel disease and 1.1 cm T2 hyperintense peripherally enhancing lesion lateral to the right mandibular ramus favoring an indeterminate right parotid gland lesion. Neck MRA performed on 06/10/2021 revealed no stenosis within the bilateral common carotid or cervical internal carotid arteries and mild stenosis at the origins of the bilateral vertebral arteries. Head/neck ultrasound performed on 06/11/2021 to evaluate right parotid gland abnormality seen on MRI revealed 1.3 x 0.7 x 1.1 cm hypoechoic right parotid gland lesion corresponding to the MRI lesion favoring an indeterminate right parotid gland lesion with nonemergent ENT consultation recommended. At the time of seeing the patient, she denies headaches or blurry vision. She endorses occasional dizziness. Also, endorses occasional nausea. Denies abdominal pain, vomiting, hematochezia, hematemesis, chest pain, shortness of breath or significant weight loss. She also denies recurrent infections or palpable lymphadenopathy. PAST MEDICAL HISTORY: 1. Hypertension. 2. Hyperlipidemia. 3. Paroxysmal atrial fibrillation. 4. GERD. 5. Irritable bowel syndrome. 6. Dementia. 7. Depression. PAST SURGICAL HISTORY: None. MEDICATIONS PRIOR TO ADMISSION: 1. Apixaban 5 mg p.o. b.i.d. 2. Atorvastatin 40 mg p.o. daily. 3. Calcium with vitamin D 1 tablet p.o. daily. 4. Metoprolol 50 mg p.o. b.i.d. 5. Multivitamin 1 tablet p.o. daily. 6. Omeprazole 20 mg p.o. b.i.d. 7. Sertraline 25 mg p.o. daily. ALLERGIES: No known drug allergies. SOCIAL HISTORY: Denies smoking, alcohol and illicit drug use. FAMILY HISTORY: Denies significant family history of malignancy. REVIEW OF SYSTEMS: CONSTITUTIONAL: Denies significant weight loss, fever, or night sweats. CARDIOVASCULAR: Denies chest pain, palpitations, dizziness, or diaphoresis. RESPIRATORY: Denies shortness of breath, cough, or hemoptysis. GASTROINTESTINAL: Endorses occasional diarrhea and nausea. Denies hematemesis, melena, vomiting or dyspepsia. GENITOURINARY: Negative for urinary frequency, urgency, hematuria or dysuria. NEUROLOGIC: Endorses occasional dizziness. Denies headaches. LYMPHATICS/HEMATOLOGIC: Denies abnormal bleeding or bruising or new adenopathy. MUSCULOSKELETAL: Negative for new joint or back pain. PHYSICAL EXAMINATION: VITAL SIGNS: Blood pressure 132/80, heart rate 67, respiratory rate 20, temperature 36.6, oxygen saturation 96% on room air. HEENT: Eyes are without conjunctival erythema or icterus. External examination was negative for masses. NECK: There were no palpable masses. RESPIRATORY: Lung sounds were clear bilaterally. CARDIOVASCULAR: Heart was irregularly irregular. GASTROINTESTINAL: Abdomen was soft, nontender with no palpable hepatosplenomegaly. LYMPHATIC SYSTEM: No palpable peripheral lymphadenopathy. EXTREMITIES: Mild bilateral pitting edema. LABORATORY DATA: CBC on 06/09/2021 revealed white cell count of 20,000, hemoglobin of 12.8, hematocrit of 39.3, MCV of 90.6, platelet count of 219,000 with absolute lymphocyte count of 4140. CBC on 06/12/2021 revealed white cell count of 11,000, hemoglobin 13.4, hematocrit 41, MCV 90.3, platelet count 199,000 with flow cytometry pending. IMAGING STUDIES: CT head on 06/09/2021, impression: There is no hemorrhage, mass effect or evidence of acute territorial ischemia by CT criteria. Chest x-ray on 06/09/2021, impression: No active disease in the chest. Brain MRI on 06/10/2021, impression: 1. No acute intracranial findings. 2. Moderate atrophy. 3. White matter T2 hyperintense foci suggestive of small vessel disease. 4. A 1.1 cm T2 hyperintense peripherally enhancing lesion lateral to the right mandibular ramus. This favors an indeterminate right parotid gland lesion. Nonemergent right parotid ultrasound is recommended for further evaluation. 5. A 3 mm enhancing focus within the anum, which reveals a capillary telangiectasia. MRA on 06/10/2021, impression: 1. No stenosis within the bilateral common carotid or cervical internal carotid arteries. 2. Mild stenosis at the origins of the bilateral vertebral arteries. Head/neck ultrasound on 06/11/2021, impression: A 1.3 x 0.7 x 1.1 cm hypoechoic right parotid gland lesion, which corresponds to the lesion on MRI of 06/10/2021. This favors an indeterminate right parotid gland lesion. An intraparotid lymph node could appear similar, although is considered less likely. Nonemergent ENT consultation is recommended. IMPRESSION: 1. Lymphocytic leukocytosis. 2. Vascular dementia. A pleasant 81-year-old female who was admitted with altered mental status, thought to be due to vascular dementia. Laboratories obtained on admission had revealed lymphocytic leukocytosis for which flow cytometry is pending. Suspect that the patient has chronic lymphocytic leukemia. She has no indications at this time for treatment as she denies any B symptoms and laboratories did not show any evidence of cytopenias. Examination did not demonstrate palpable lymphadenopathy or organomegaly. Based on this, if flow cytometry confirms chronic lymphocytic leukemia, she would most likely benefit from observation or active surveillance. We will plan to see the patient in clinic upon discharge from hospital. PLAN: 1. Agree with obtaining a flow cytometry. 2. Recommend outpatient followup upon discharge from hospital. Thank you for this consult. Hematology will sign off at this time to see the patient in clinic upon discharge. Please feel free to call if you have any further questions. Job ID: [id number]
== END 2021-06-12 18:29 | disposition home or self-care (01) | DRG 884 ==
LOC: EDINP 17:12 → ED 17:12 → SUATTDRO 23:08 → 2N 06-10 02:33 → SUATTDRO 06-11 12:53